=== PATIENT | female | born 1980 | race Caucasian/White ===

== ENCOUNTER 2017-07-11 01:15 | Emergency (ER) | payer MEDICAID ==
[~2017-07-11] VITALS: Ht 165.1 cm; Wt 99.5 kg
[~2017-07-11 01:15] MED LIST: ALBU18HF2 INH; BECL7.3A INH; CLON-527 PO; ONDA4TAB9 SL; TRAZ300T2 PO
[2017-07-11] MEDS ORDERED: HYDROcodone/acetaminophen 10/325mg tab PO ONE (01:50)
[2017-07-11] MEDS ORDERED: IBUP-1984 PO (02:27)
[2017-07-11] MEDS ORDERED: HYDR-3965 PO (02:27)
[2017-07-11 02:38] VITALS: BP 131/83
== END 2017-07-11 02:40 | disposition home or self-care (01) ==
LOC: ER 01:15
DX: M25.461 Effusion, right knee (principal); F12.10 Cannabis abuse, uncomplicated; J45.909 Unspecified asthma, uncomplicated; G89.29 Other chronic pain; M79.7 Fibromyalgia; Z88.0 Allergy status to penicillin; Z88.5 Allergy status to narcotic agent; Z88.8 Allergy status to other drugs, medicaments and biological substances; Z90.49 Acquired absence of other specified parts of digestive tract; Z56.0 Unemployment, unspecified; W01.0XXA Fall on same level from slipping, tripping and stumbling without subsequent striking against object, initial encounter; Y93.01 Activity, walking, marching and hiking; Y92.89 Other specified places as the place of occurrence of the external cause; Y99.8 Other external cause status
CPT/HCPCS: 29505; 73564; 99284

== ENCOUNTER 2017-07-31 07:31 | Emergency (ER) | payer MEDICAID ==
[~2017-07-31] VITALS: Ht 162.6 cm; Wt 99.5 kg
[~2017-07-31 07:31] MED LIST changes: +HYDR-3965 PO; +IBUP-1984 PO
[2017-07-31 07:35] VITALS: BP 152/84
[2017-07-31] MEDS ORDERED: PHEN100C4 PO (07:53)
[2017-07-31] MEDS: phenytoin sod ER 100mg capsule PO ONE (08:02)
[2017-07-31] MEDS: proCHLORperazine 10mg tablet PO ONE (08:02)
[2017-07-31] MEDS: HYDROcodone/acetaminophen 10/325mg tab PO ONE (08:03)
== END 2017-07-31 08:18 | disposition home or self-care (01) ==
LOC: ER 07:31
DX: G40.909 Epilepsy, unspecified, not intractable, without status epilepticus (principal); J45.909 Unspecified asthma, uncomplicated; G43.909 Migraine, unspecified, not intractable, without status migrainosus; G89.29 Other chronic pain; F12.10 Cannabis abuse, uncomplicated; Z90.49 Acquired absence of other specified parts of digestive tract; Z56.0 Unemployment, unspecified; Z88.0 Allergy status to penicillin; Z88.5 Allergy status to narcotic agent; Z88.8 Allergy status to other drugs, medicaments and biological substances; Z79.899 Other long term (current) drug therapy
CPT/HCPCS: 99284; Q0164

== ENCOUNTER 2017-08-06 17:55 | Emergency (ER) | payer MEDICAID ==
[~2017-08-06] VITALS: Ht 162.6 cm; Wt 100.0 kg
[~2017-08-06 17:55] MED LIST changes: +PHEN100C4 PO
[2017-08-06 18:03] VITALS: BP 127/80
[2017-08-06] MEDS: albuterol 2.5 MG/3 ML nebule NEB ONE (18:44)
[2017-08-06] MEDS ORDERED: ALBU8HFA PO (19:03)
== END 2017-08-06 19:00 | disposition home or self-care (01) ==
LOC: ER 17:57
DX: J45.909 Unspecified asthma, uncomplicated (principal); J06.9 Acute upper respiratory infection, unspecified; G43.909 Migraine, unspecified, not intractable, without status migrainosus; G89.29 Other chronic pain; M79.7 Fibromyalgia; F12.10 Cannabis abuse, uncomplicated; Z90.49 Acquired absence of other specified parts of digestive tract; Z98.51 Tubal ligation status; Z56.0 Unemployment, unspecified; Z88.5 Allergy status to narcotic agent; Z88.0 Allergy status to penicillin; Z79.899 Other long term (current) drug therapy
CPT/HCPCS: 71045; 94640; 94760; 99283

== ENCOUNTER 2017-10-19 12:14 | Emergency (ER) | payer MEDICAID ==
[~2017-10-19] VITALS: Ht 1588.3 cm; Wt 95.1 kg
[~2017-10-19 12:14] MED LIST changes: +ALBU8HFA PO; -HYDR-3965 PO; -IBUP-1984 PO
[2017-10-19 13:03] LABS: BASOPHILS % (AUTO) 0.4 % (0-1); EOSINOPHILS # (AUTO) 0.2 X10'3 (0-0.9); EOSINOPHILS % (AUTO) 1.9 % (0-6); HEMATOCRIT 46.8 % (35.0-45.0); HEMOGLOBIN 15.8 g/dl (12.0-16.0); LYMPHOCYTES # (AUTO) 2.3 X10'3 (1.1-4.8); LYMPHOCYTES % (AUTO) 23.7 % (21-51); MEAN CORPUSCULAR HEMOGLOBIN 30.7 PG (27.0-31.0); MEAN CORPUSCULAR HGB CONC 33.7 % (33.0-36.5); MEAN PLATELET VOLUME 8.2 FL (7.4-10.4); MONOCYTES # (AUTO) 0.6 X10'3 (0-0.9); MONOCYTES % (AUTO) 6.2 % (2-12); NEUTROPHILS # (AUTO) 6.6 X10'3 (1.8-7.7); NEUTROPHILS % (AUTO) 67.8 % (42-75); PLATELET COUNT 301 X10'3 (140-440); RED BLOOD COUNT 5.15 X10'6 (4.20-5.60); WHITE BLOOD COUNT 9.7 X10'3 (4.5-11.0)
[2017-10-19 13:21] LABS: ALANINE AMINOTRANSFERASE 13 U/L (12-78); ALBUMIN 3.7 G/DL (3.4-5.0); ALBUMIN/GLOBULIN RATIO 0.9 (1.1-1.5); ALKALINE PHOSPHATASE 112 IU/L (46-116); ANION GAP 9 (8-16); ASPARTATE AMINO TRANSFERASE 22 U/L (10-37); BILIRUBIN,TOTAL 0.4 MG/DL (0.1-1.0); BLOOD UREA NITROGEN 7 MG/DL (7-18); CALCIUM 8.9 MG/DL (8.5-10.1); CHLORIDE 106 MMOL/L (99-107); CREATININE 0.87 MG/DL (0.40-0.90); GLUCOSE 96 MG/DL (70-104); POTASSIUM 4.2 MMOL/L (3.5-5.1); SODIUM 139 MMOL/L (135-145); TOTAL PROTEIN 7.9 G/DL (6.4-8.2); eGFR 74 ML/MIN
[2017-10-19 13:30] LABS: ACETAMINOPHEN < 2.0 UG/ML (10-30); ETHANOL < 0.010 GM/DL (0.0-0.010)
[2017-10-19 13:40] LABS: URINE HCG NEGATIVE (NEG)
[2017-10-19 13:52] LABS: URINE AMPHETAMINE SCREEN NEGATIVE (Neg); URINE BARBITUATE SCREEN NEGATIVE (Neg); URINE BENZODIAZEPINES SCREEN NEGATIVE (Neg); URINE CANNABINOID SCREEN POSITIVE (Neg); URINE COCAINE SCREEN NEGATIVE (Neg); URINE METHADONE SCREEN NEGATIVE (Neg); URINE OPIATE SCREEN NEGATIVE (Neg); URINE PHENCYCLIDINE SCREEN NEGATIVE (Neg)
[2017-10-19 13:53] LABS: CLARITY,URINE SLIGHTLY CLOUDY (Clear); COLOR,URINE YELLOW (Yellow); GLUCOSE, URINE NEGATIVE (Neg); KETONES,URINE NEGATIVE (Neg); LEUKOCYTE ESTERASE ,URINE LARGE (Neg); NITRITES, URINE NEGATIVE (Neg); OCCULT BLOOD,URINE NEGATIVE (Neg); PROTEIN,URINE NEGATIVE (Neg); UROBILINOGEN,URINE 0.2 E.U/dL (0.2-1.0)
[2017-10-19 13:54] LABS: UA COLLECTION TYPE NON-SPECIFIED
[2017-10-19 14:00] LABS: MUCUS STRANDS FEW /LPF (Neg); SQUAMOUS EPITHELIAL CELL,UR MANY /LPF (FEW); WBC,URINE 0-4 /HPF (0-4)
[2017-10-19 14:01] LABS: BACTERIA,URINE 4+ /HPF (Neg); RBC,URINE 0-2 /HPF (0-2)
[2017-10-19] MEDS ORDERED: acetaminophen 325mg tablet PO ONE (14:20)
[2017-10-19] MEDS ORDERED: LORazepam 1 MG tablet PO ONE (14:20)
[2017-10-19] MEDS ORDERED: LORA2TAB96 PO (14:42)
[2017-10-19] MEDS ORDERED: TOPI100T18 PO (14:42)
[2017-10-19] MEDS ORDERED: OLAN5TAB3 PO (14:42)
[2017-10-19] MEDS ORDERED: ZALE10CA29 PO (14:42)
[2017-10-19] MEDS ORDERED: BREX2TAB PO (14:42)
[2017-10-19] MEDS: LORazepam 1 MG tablet PO PRN (20:17)
[2017-10-19] MEDS: OLANZapine 2.5MG tablet PO SCH (20:17)
[2017-10-19] MEDS: nitrofuran/nitrofuran macrocrysal 100 MG capsule PO SCH (20:18)
[2017-10-19] MEDS: zolpidem 5mg tablet PO SCH (20:18)
[2017-10-19] MEDS ORDERED: topiramate 100mg tablet PO ONE (21:00)
[2017-10-20] MEDS: nitrofuran/nitrofuran macrocrysal 100 MG capsule PO SCH ×2 (08:31→20:02)
[2017-10-20] MEDS: LORazepam 1 MG tablet PO PRN ×3 (08:34→20:02)
[2017-10-20] MEDS ORDERED: albuterol 2.5 MG/3 ML nebule NEB PRN (08:50)
[2017-10-20] MEDS ORDERED: non-formulary drug (Albuterol Sulfate (Ventolin Hfa) 2 PUFFS) INH PRN (08:50)
[2017-10-20] MEDS ORDERED: LORAZEPAM PO SCH (08:50)
[2017-10-20] MEDS: BUDESONIDE 0.25 MG/2 ML AMPUL.NEB IH SCH ×2 (09:00→20:59)
[2017-10-20] MEDS: topiramate 100mg tablet PO SCH ×2 (09:08→20:02)
[2017-10-20] MEDS ORDERED: phenazopyridine 100mg tablet PO PRN (10:20)
[2017-10-20] MEDS: OLANZapine 2.5MG tablet PO SCH (20:02)
[2017-10-20] MEDS: zolpidem 5mg tablet PO SCH (20:02)
[2017-10-20] MEDS ORDERED: non-formulary drug (Olanzapine (Zyprexa) 1 TAB) PO SCH (21:00)
[2017-10-20] MEDS ORDERED: ZALEPLON PO SCH (21:00)
[2017-10-21 05:30] VITALS: BP 139/82
[2017-10-21] MEDS: BUDESONIDE 0.25 MG/2 ML AMPUL.NEB IH SCH (07:35)
[2017-10-21] MEDS: nitrofuran/nitrofuran macrocrysal 100 MG capsule PO SCH (07:52)
[2017-10-21] MEDS: topiramate 100mg tablet PO SCH (07:52)
[2017-10-21] MEDS ORDERED: BREXPIPRAZOLE PO SCH (08:00)
[2017-10-21] MEDS: LORazepam 1 MG tablet PO PRN ×2 (08:24→13:56)
== END 2017-10-21 14:41 ==
LOC: ER 12:14
DX: F31.9 Bipolar disorder, unspecified (principal); F41.0 Panic disorder [episodic paroxysmal anxiety]; R45.851 Suicidal ideations; G43.909 Migraine, unspecified, not intractable, without status migrainosus; J45.909 Unspecified asthma, uncomplicated; G89.29 Other chronic pain; F12.90 Cannabis use, unspecified, uncomplicated; Z90.49 Acquired absence of other specified parts of digestive tract; Z56.0 Unemployment, unspecified; Z88.0 Allergy status to penicillin; Z88.5 Allergy status to narcotic agent; Z79.899 Other long term (current) drug therapy
CPT/HCPCS: 36415; 80053; 80305; 80320; 80329; 81001; 81025; 84443; 85025; 94760; 99285

== ENCOUNTER 2017-11-20 10:14 | Emergency (ER) | payer MEDICAID ==
[~2017-11-20] VITALS: Ht 162.6 cm; Wt 89.0 kg
[~2017-11-20 10:14] MED LIST changes: +BREX2TAB PO; -CLON-527 PO; +LORA2TAB96 PO; +OLAN5TAB3 PO; -ONDA4TAB9 SL; -PHEN100C4 PO; +TOPI100T18 PO; +ZALE10CA29 PO
[2017-11-20 11:56] LABS: URINE HCG NEGATIVE (NEG)
[2017-11-20 12:00] LABS: BASOPHILS % (AUTO) 0.3 % (0-1); EOSINOPHILS # (AUTO) 0.1 X10'3 (0-0.9); EOSINOPHILS % (AUTO) 0.8 % (0-6); HEMATOCRIT 46.8 % (35.0-45.0); HEMOGLOBIN 15.6 g/dl (12.0-16.0); LYMPHOCYTES # (AUTO) 2.1 X10'3 (1.1-4.8); LYMPHOCYTES % (AUTO) 16.9 % (21-51); MEAN CORPUSCULAR HEMOGLOBIN 30.5 PG (27.0-31.0); MEAN CORPUSCULAR HGB CONC 33.2 % (33.0-36.5); MEAN CORPUSCULAR VOLUME 91.6 FL (78-98); MEAN PLATELET VOLUME 8.6 FL (7.4-10.4); MONOCYTES # (AUTO) 0.8 X10'3 (0-0.9); MONOCYTES % (AUTO) 6.3 % (2-12); NEUTROPHILS # (AUTO) 9.3 X10'3 (1.8-7.7); NEUTROPHILS % (AUTO) 75.7 % (42-75); PLATELET COUNT 271 X10'3 (140-440); RED BLOOD COUNT 5.11 X10'6 (4.20-5.60); WHITE BLOOD COUNT 12.3 X10'3 (4.5-11.0)
[2017-11-20 12:03] LABS: ALANINE AMINOTRANSFERASE 18 U/L (12-78); ALBUMIN 3.5 G/DL (3.4-5.0); ALBUMIN/GLOBULIN RATIO 0.9 (1.1-1.5); ALKALINE PHOSPHATASE 110 IU/L (46-116); ANION GAP 11 (8-16); ASPARTATE AMINO TRANSFERASE 15 U/L (10-37); BILIRUBIN,TOTAL 0.4 MG/DL (0.1-1.0); BLOOD UREA NITROGEN 7 MG/DL (7-18); BUN/CREATININE RATIO 8.1 (6.6-38.0); CALCIUM 8.9 MG/DL (8.5-10.1); CHLORIDE 103 MMOL/L (99-107); CREATININE 0.86 MG/DL (0.40-0.90); GLUCOSE 117 MG/DL (70-104); POTASSIUM 3.3 MMOL/L (3.5-5.1); SODIUM 140 MMOL/L (135-145); TOTAL CARBON DIOXIDE 26.4 MMOL/L (24-32); TOTAL PROTEIN 7.5 G/DL (6.4-8.2); eGFR 75 ML/MIN
[2017-11-20 12:06] LABS: URINE AMPHETAMINE SCREEN NEGATIVE (Neg); URINE BARBITUATE SCREEN NEGATIVE (Neg); URINE BENZODIAZEPINES SCREEN NEGATIVE (Neg); URINE CANNABINOID SCREEN POSITIVE (Neg); URINE COCAINE SCREEN NEGATIVE (Neg); URINE METHADONE SCREEN NEGATIVE (Neg); URINE OPIATE SCREEN NEGATIVE (Neg); URINE PHENCYCLIDINE SCREEN NEGATIVE (Neg)
[2017-11-20 12:13] LABS: ETHANOL < 0.010 GM/DL (0.0-0.010)
[2017-11-20 12:26] LABS: ACETAMINOPHEN < 2.0 UG/ML (10-30)
[2017-11-20] MEDS ORDERED: doxycycline hyclate 100mg tablet.DR PO ONE (13:09)
[2017-11-20 13:14] LABS: CLARITY,URINE SLIGHTLY CLOUDY (Clear); COLOR,URINE YELLOW (Yellow); GLUCOSE, URINE NEGATIVE (Neg); KETONES,URINE 15 mg/dl (Neg); LEUKOCYTE ESTERASE ,URINE SMALL (Neg); NITRITES, URINE NEGATIVE (Neg); OCCULT BLOOD,URINE TRACE-INTACT (Neg); PH,URINE 6.5 (4.8-8.0); PROTEIN,URINE 30 mg/dl (Neg)
[2017-11-20] MEDS ORDERED: DOXYCYCLINE 100MG CAPSULE PO STA (13:15)
[2017-11-20 13:16] LABS: UA COLLECTION TYPE CLN CATCH MIDSTREAM
[2017-11-20 13:20] LABS: RBC,URINE 0-2 /HPF (0-2)
[2017-11-20 13:21] LABS: BACTERIA,URINE FEW /HPF (Neg); CAL OXALATE CRYSTALS 1+ /HPF (NEGATIVE); MUCUS STRANDS MODERATE /LPF (Neg); SQUAMOUS EPITHELIAL CELL,UR MODERATE /LPF (FEW)
[2017-11-20] MEDS ORDERED: BECL7.3A7 INH (13:37)
[2017-11-20] MEDS ORDERED: GABA-532 PO (13:39)
[2017-11-20] MEDS ORDERED: LORazepam 1 MG tablet PO PRN (14:05)
[2017-11-20] MEDS ORDERED: acetaminophen 325mg tablet PO PRN (14:05)
[2017-11-20] MEDS ORDERED: zolpidem 5mg tablet PO PRN (14:10)
[2017-11-20] MEDS ORDERED: albuterol 2.5 MG/3 ML nebule NEB PRN (14:10)
[2017-11-20 16:45] VITALS: BP 114/76
[2017-11-20] MEDS ORDERED: budesonide 0.5mg/2ml UD nebule IH SCH (20:00)
[2017-11-20] MEDS ORDERED: gabapentin 300mg capsule PO SCH (21:00)
== END 2017-11-20 18:20 ==
LOC: ER 10:14
DX: B95.8 Unspecified staphylococcus as the cause of diseases classified elsewhere (principal); R45.851 Suicidal ideations; F12.90 Cannabis use, unspecified, uncomplicated; G89.29 Other chronic pain; G43.909 Migraine, unspecified, not intractable, without status migrainosus; F41.9 Anxiety disorder, unspecified; F32.9 Major depressive disorder, single episode, unspecified; Z90.49 Acquired absence of other specified parts of digestive tract; Z88.0 Allergy status to penicillin; Z88.5 Allergy status to narcotic agent; Z88.8 Allergy status to other drugs, medicaments and biological substances; Z79.899 Other long term (current) drug therapy; Z56.0 Unemployment, unspecified
CPT/HCPCS: 36415; 80053; 80305; 80320; 80329; 81001; 81025; 84443; 85025; 99285

== ENCOUNTER 2019-12-16 18:15 | Emergency (ER) | payer MEDICAID ==
[~2019-12-16] VITALS: Ht 163.8 cm; Wt 90.0 kg
[~2019-12-16 18:15] MED LIST changes: -ALBU8HFA PO; -BECL7.3A INH; +BECL7.3A7 INH; -BREX2TAB PO; +GABA-532 PO; -OLAN5TAB3 PO; -TOPI100T18 PO; -TRAZ300T2 PO
[2019-12-16] MEDS ORDERED: diphenhydrAMINE 50 mg/ml inj IM ONE (18:40)
[2019-12-16] MEDS ORDERED: LORazepam 2 mg/ml vial IM ONE (18:40)
[2019-12-16] MEDS ORDERED: haloperidol lactate 5mg/ml inj IM ONE (18:40)
[2019-12-16 20:21] LABS: BASOPHILS # (AUTO) 0.1 X10'3 (0-0.2); BASOPHILS % (AUTO) 0.5 % (0-1); EOSINOPHILS # (AUTO) 0.1 X10'3 (0-0.9); EOSINOPHILS % (AUTO) 0.6 % (0-6); HEMATOCRIT 40.6 % (35.0-45.0); HEMOGLOBIN 13.7 g/dl (12.0-16.0); LYMPHOCYTES # (AUTO) 1.7 X10'3 (1.1-4.8); LYMPHOCYTES % (AUTO) 12.2 % (21-51); MEAN CORPUSCULAR HEMOGLOBIN 31.3 PG (27.0-31.0); MEAN CORPUSCULAR HGB CONC 33.7 g/dL (33.0-36.5); MEAN CORPUSCULAR VOLUME 92.8 FL (78-98); MEAN PLATELET VOLUME 8.6 FL (7.4-10.4); MONOCYTES # (AUTO) 1.2 X10'3 (0-0.9); MONOCYTES % (AUTO) 8.6 % (2-12); NEUTROPHILS # (AUTO) 11.2 X10'3 (1.8-7.7); NEUTROPHILS % (AUTO) 78.1 % (42-75); PLATELET COUNT 234 X10'3 (140-440); RED BLOOD COUNT 4.37 X10'6 (4.20-5.60); RED CELL DISTRIBUTION WIDTH 13.2 % (11.5-14.5); WHITE BLOOD COUNT 14.3 X10'3 (4.5-11.0)
[2019-12-16 20:46] LABS: ALANINE AMINOTRANSFERASE 54 U/L (12-78); ALBUMIN 3.9 G/DL (3.4-5.0); ALBUMIN/GLOBULIN RATIO 1.3 (1.1-1.5); ALKALINE PHOSPHATASE 87 IU/L (46-116); ANION GAP 13 (8-16); ASPARTATE AMINO TRANSFERASE 85 U/L (10-37); BILIRUBIN,TOTAL 1.3 MG/DL (0.1-1.0); BLOOD UREA NITROGEN 24 MG/DL (7-18); BUN/CREATININE RATIO 28.6 (6.6-38.0); CALCIUM 9.1 MG/DL (8.5-10.1); CHLORIDE 103 MMOL/L (99-107); CREATININE 0.84 MG/DL (0.40-0.90); GLUCOSE 103 MG/DL (70-104); SODIUM 137 MMOL/L (135-145); TOTAL CARBON DIOXIDE 21.2 MMOL/L (24-32); TOTAL PROTEIN 6.9 G/DL (6.4-8.2); eGFR 76 ML/MIN
[2019-12-16 20:52] LABS: POTASSIUM 2.5 MMOL/L (3.5-5.1)
[2019-12-16 20:56] LABS: URINE HCG NEGATIVE (NEG)
[2019-12-16 20:58] LABS: CLARITY,URINE CLEAR (Clear); COLOR,URINE YELLOW (Yellow); GLUCOSE, URINE NEGATIVE (Neg); KETONES,URINE 15 mg/dl (Neg); LEUKOCYTE ESTERASE ,URINE NEGATIVE (Neg); NITRITES, URINE NEGATIVE (Neg); OCCULT BLOOD,URINE NEGATIVE (Neg); PROTEIN,URINE TRACE mg/dl (Neg); UROBILINOGEN,URINE 0.2 E.U/dL (0.2-1.0)
[2019-12-16 20:59] LABS: UA COLLECTION TYPE STRAIGHT CATH
[2019-12-16] MEDS ORDERED: potassium chloride 10mEq ER tablet PO STA (21:03)
[2019-12-16 21:10] LABS: BACTERIA,URINE FEW /HPF (Neg); MUCUS STRANDS FEW /LPF (Neg); RBC,URINE 0-2 /HPF (0-2); SQUAMOUS EPITHELIAL CELL,UR MODERATE /LPF (FEW); URINE AMPHETAMINE SCREEN POSITIVE (Neg); URINE BARBITUATE SCREEN NEGATIVE (Neg); URINE BENZODIAZEPINES SCREEN NEGATIVE (Neg); URINE CANNABINOID SCREEN POSITIVE (Neg); URINE COCAINE SCREEN NEGATIVE (Neg); URINE METHADONE SCREEN NEGATIVE (Neg); URINE OPIATE SCREEN NEGATIVE (Neg); URINE PHENCYCLIDINE SCREEN NEGATIVE (Neg)
--- NOTE | 2019-12-16 21:14 | NUR ---
when I performed the strait cath for urine sample, a tampon string with brown dicharge was protruding from pt's vaginal canal. There was a metalic smell noted in the room. The tampon was removed. It appeared to have old blood on it. Angelika FAGAN is aware
[2019-12-16] MEDS ORDERED: normal saline 1000ML IV soln IVB ONE (21:35)
[2019-12-16] MEDS: potassium Cl 10 mEq/100mL bag IV SCH ×2 (21:42→22:42)
--- NOTE | 2019-12-16 21:44 | NUR ---
Pt unable to swallow PO K+ at this time. Provider aware IV started K+ hung
--- NOTE | 2019-12-17 00:30 | NUR ---
Pt is being held on a 179 for gravely disabled. Pt is altered at this time. When she is awake she can't stop jerking body and slithering around on the bed.
--- NOTE | 2019-12-17 10:23 | NUR ---
PT. HAS BEEN RESTING Q15 CHECKS HAVE BEEN PERFORMED PT. HAS BEEN RESTING VITAL SIGNS ARE STABLE
--- NOTE | 2019-12-17 12:59 | NUR ---
PT RESTING, SHE WAS PROVIDED A BLANKET AND SOME FOOD
--- NOTE | 2019-12-17 13:18 | NUR ---
PT. BROUGHT BACK TO OVERFLOW, IN BED 23
[2019-12-17 15:37] VITALS: BP 95/60
--- NOTE | 2019-12-17 15:41 | NUR ---
DISCHARGE NOTE: Patient discharged at 1535 from ED overflow. Patient was escorted out to lobby to wait for ride from her friend Emilio. Patient is alert and oriented. Patient left with personal belongings, resources and follow up appointment.
== END 2019-12-17 15:42 | disposition home or self-care (01) ==
LOC: ER 18:16
DX: F15.10 Other stimulant abuse, uncomplicated (principal); F23 Brief psychotic disorder; E87.6 Hypokalemia; G43.909 Migraine, unspecified, not intractable, without status migrainosus; J45.909 Unspecified asthma, uncomplicated; G89.29 Other chronic pain; F41.9 Anxiety disorder, unspecified; F31.9 Bipolar disorder, unspecified; F12.90 Cannabis use, unspecified, uncomplicated; Z86.69 Personal history of other diseases of the nervous system and sense organs; Z90.49 Acquired absence of other specified parts of digestive tract; Z98.51 Tubal ligation status; Z56.0 Unemployment, unspecified; Z88.8 Allergy status to other drugs, medicaments and biological substances; Z88.5 Allergy status to narcotic agent; Z88.0 Allergy status to penicillin; Z79.899 Other long term (current) drug therapy
CPT/HCPCS: 36415; 80053; 80305; 81001; 81025; 82553; 85025; 87088; 96365; 96366; 96372; 99285; J1630; J2060; J3480; J7030; 96375

== ENCOUNTER 2020-03-01 20:09 | Emergency (ER) | payer MEDICAID ==
[~2020-03-01] VITALS: Ht 162.6 cm; Wt 72.7 kg
[2020-03-01 20:27] LABS: BASOPHILS # (AUTO) 0.1 X10'3 (0-0.2); EOSINOPHILS # (AUTO) 0.2 X10'3 (0-0.9); EOSINOPHILS % (AUTO) 2.7 % (0-6); HEMATOCRIT 40.3 % (35.0-45.0); HEMOGLOBIN 13.4 g/dl (12.0-16.0); LYMPHOCYTES # (AUTO) 3.6 X10'3 (1.1-4.8); LYMPHOCYTES % (AUTO) 41.3 % (21-51); MEAN CORPUSCULAR HEMOGLOBIN 30.3 PG (27.0-31.0); MEAN CORPUSCULAR HGB CONC 33.2 g/dL (33.0-36.5); MEAN CORPUSCULAR VOLUME 91.2 FL (78-98); MEAN PLATELET VOLUME 7.5 FL (7.4-10.4); MONOCYTES # (AUTO) 0.7 X10'3 (0-0.9); MONOCYTES % (AUTO) 8.1 % (2-12); NEUTROPHILS # (AUTO) 4.1 X10'3 (1.8-7.7); NEUTROPHILS % (AUTO) 46.9 % (42-75); PLATELET COUNT 399 X10'3 (140-440); RED BLOOD COUNT 4.42 X10'6 (4.20-5.60); RED CELL DISTRIBUTION WIDTH 14.4 % (11.5-14.5); WHITE BLOOD COUNT 8.8 X10'3 (4.5-11.0)
[2020-03-01 20:46] LABS: ALANINE AMINOTRANSFERASE 20 U/L (12-78); ALBUMIN 3.8 G/DL (3.4-5.0); ALKALINE PHOSPHATASE 79 IU/L (46-116); ANION GAP 8 (8-16); BILIRUBIN,TOTAL 0.4 MG/DL (0.1-1.0); BLOOD UREA NITROGEN 12 MG/DL (7-18); BUN/CREATININE RATIO 14.3 (6.6-38.0); CALCIUM 8.9 MG/DL (8.5-10.1); CHLORIDE 106 MMOL/L (99-107); CREATININE 0.84 MG/DL (0.40-0.90); GLUCOSE 77 MG/DL (70-104); SODIUM 141 MMOL/L (135-145); TOTAL CARBON DIOXIDE 27.4 MMOL/L (24-32); TOTAL PROTEIN 7.8 G/DL (6.4-8.2); eGFR 76 ML/MIN
[2020-03-01] MEDS ORDERED: ketorolac tromethamine 15mg/ml inj. IV ONE (20:50)
[2020-03-01] MEDS ORDERED: ondansetron/PF 4mg/2ml inj IV ONE (20:50)
[2020-03-01 20:54] LABS: TROPONIN I < 0.04 NG/ML (0.0-0.05)
[2020-03-01 20:56] LABS: ASPARTATE AMINO TRANSFERASE 24 U/L (10-37); POTASSIUM 4.1 MMOL/L (3.5-5.1)
[2020-03-01 21:06] LABS: CLARITY,URINE CLEAR (Clear); COLOR,URINE STRAW (Yellow); GLUCOSE, URINE NEGATIVE (Neg); KETONES,URINE NEGATIVE (Neg); LEUKOCYTE ESTERASE ,URINE MODERATE (Neg); NITRITES, URINE NEGATIVE (Neg); OCCULT BLOOD,URINE TRACE-INTACT (Neg); PROTEIN,URINE NEGATIVE (Neg); UROBILINOGEN,URINE 0.2 E.U/dL (0.2-1.0)
[2020-03-01 21:07] LABS: UA COLLECTION TYPE NON-SPECIFIED
[2020-03-01 21:08] LABS: URINE HCG NEGATIVE (NEG)
[2020-03-01 21:12] LABS: BACTERIA,URINE 1+ /HPF (Neg); RBC,URINE 0-2 /HPF (0-2); SQUAMOUS EPITHELIAL CELL,UR MODERATE /LPF (FEW); URINE AMPHETAMINE SCREEN NEGATIVE (Neg); URINE BARBITUATE SCREEN NEGATIVE (Neg); URINE BENZODIAZEPINES SCREEN NEGATIVE (Neg); URINE CANNABINOID SCREEN NEGATIVE (Neg); URINE COCAINE SCREEN NEGATIVE (Neg); URINE METHADONE SCREEN NEGATIVE (Neg); URINE OPIATE SCREEN NEGATIVE (Neg); URINE PHENCYCLIDINE SCREEN NEGATIVE (Neg)
[2020-03-01] MEDS ORDERED: levetiracetam 250mg tablet PO ONE (21:35)
[2020-03-01 21:40] VITALS: BP 124/63
[2020-03-01] MEDS ORDERED: CefTRIAXone 1000mg IM Kit (w/lidocaine diluent) IM ONE (21:40)
[2020-03-01] MEDS ORDERED: NITR100C6 PO (21:53)
--- NOTE | 2020-03-01 21:56 | NUR ---
CALLED [facility]. STAFF WILL BE COMING TO PICK PT UP
== END 2020-03-01 22:26 | disposition home or self-care (01) ==
LOC: ER 20:09 → MERGE 20:10 → ER 20:10
DX: N39.0 Urinary tract infection, site not specified (principal); R11.0 Nausea; R51.9 Headache, unspecified; F17.200 Nicotine dependence, unspecified, uncomplicated; F15.90 Other stimulant use, unspecified, uncomplicated; Z86.69 Personal history of other diseases of the nervous system and sense organs; Z88.5 Allergy status to narcotic agent; Z88.8 Allergy status to other drugs, medicaments and biological substances; Z79.899 Other long term (current) drug therapy
CPT/HCPCS: 36415; 71045; 80053; 80305; 81001; 81025; 83880; 84484; 85025; 87088; 93005; 96372; 96374; 96375; 99285; J0696; J1885; J2405

== ENCOUNTER 2020-11-08 14:57 | Emergency (ER) | payer MEDICAID ==
[~2020-11-08] VITALS: Ht 162.6 cm; Wt 67.0 kg
[~2020-11-08 14:57] MED LIST changes: +NITR100C6 PO
[2020-11-08 16:58] LABS: BASOPHILS % (AUTO) 0.5 % (0-1); EOSINOPHILS # (AUTO) 0.2 X10'3 (0-0.9); EOSINOPHILS % (AUTO) 3.4 % (0-6); HEMATOCRIT 40.9 % (35.0-45.0); HEMOGLOBIN 13.6 g/dl (12.0-16.0); LYMPHOCYTES # (AUTO) 2.5 X10'3 (1.1-4.8); LYMPHOCYTES % (AUTO) 35.8 % (21-51); MEAN CORPUSCULAR HGB CONC 33.3 g/dL (33.0-36.5); MEAN PLATELET VOLUME 7.9 FL (7.4-10.4); MONOCYTES # (AUTO) 0.6 X10'3 (0-0.9); MONOCYTES % (AUTO) 8.3 % (2-12); NEUTROPHILS # (AUTO) 3.7 X10'3 (1.8-7.7); PLATELET COUNT 321 X10'3 (140-440)
[2020-11-08 17:07] LABS: ALANINE AMINOTRANSFERASE 21 U/L (12-78); ALBUMIN 3.6 G/DL (3.4-5.0); ALBUMIN/GLOBULIN RATIO 1.1 (1.1-1.5); ALKALINE PHOSPHATASE 77 IU/L (46-116); ANION GAP 7 (8-16); ASPARTATE AMINO TRANSFERASE 12 U/L (10-37); BILIRUBIN,TOTAL 0.3 MG/DL (0.1-1.0); BLOOD UREA NITROGEN 12 MG/DL (7-18); BUN/CREATININE RATIO 17.1 (6.6-38.0); CALCIUM 8.5 MG/DL (8.5-10.1); CHLORIDE 107 MMOL/L (99-107); ETHANOL < 0.010 GM/DL (0.0-0.010); GLUCOSE 106 MG/DL (70-104); POTASSIUM 3.9 MMOL/L (3.5-5.1); SODIUM 142 MMOL/L (135-145); TOTAL CARBON DIOXIDE 27.8 MMOL/L (24-32); eGFR > 90 ML/MIN
[2020-11-08] MEDS ORDERED: LEVE10002 PO (19:19)
--- NOTE | 2020-11-08 19:22 | NUR ---
The patient moved to bed 24 in the overflow. She was pleasant and cooperative with the intake process. She reports that that she recently moved to [facility] from [facility] so that she can get into a drug and ETOH treatment program. She has been staying at the [facility] and reports she has been off meth for 8 days. She stated that she has been feeling depressed, hopeless and having suicidal thoughts and stated that she is having cravings and feels like she might relapse. She stated that she feels suicidal with a plan to overdose on OTC medications. She was in [facility] one month ago but did not follow through with medications and started using meth again. She reports a history of seizures and stated she has been off her keppra and all other medications
[2020-11-08 19:29] LABS: URINE HCG NEGATIVE (NEG)
[2020-11-08 19:40] LABS: URINE AMPHETAMINE SCREEN NEGATIVE (Neg); URINE BARBITUATE SCREEN NEGATIVE (Neg); URINE BENZODIAZEPINES SCREEN NEGATIVE (Neg); URINE CANNABINOID SCREEN POSITIVE (Neg); URINE COCAINE SCREEN NEGATIVE (Neg); URINE METHADONE SCREEN NEGATIVE (Neg); URINE OPIATE SCREEN NEGATIVE (Neg); URINE PHENCYCLIDINE SCREEN NEGATIVE (Neg)
[2020-11-08] MEDS ORDERED: albuterol 2.5 MG/3 ML nebule NEB PRN (20:00)
[2020-11-08] MEDS: levetiracetam 250mg tablet PO SCH (20:31)
--- NOTE | 2020-11-08 21:30 | NUR ---
Packet to [facility]
--- NOTE | 2020-11-08 21:43 | NUR ---
The patient appears to be sleeping
--- NOTE | 2020-11-09 00:07 | NUR ---
The patient appears to be sleeping
--- NOTE | 2020-11-09 01:58 | NUR ---
The patient appears to be sleeping
--- NOTE | 2020-11-09 03:49 | NUR ---
The patient appears to be sleeping
--- NOTE | 2020-11-09 05:19 | NUR ---
The patient appears to be sleeping
[2020-11-09] MEDS: levetiracetam 250mg tablet PO SCH ×2 (08:39→19:15)
--- NOTE | 2020-11-09 17:49 | NUR ---
Patient c/o pain in her ankle and a headache. Spoke with Dr. Cai who stated to place a verbal order for tylenol 650 mg PO once now for pain. Placed order per MD request, Phil SOTOMAYOR aware.
[2020-11-09] MEDS ORDERED: acetaminophen 325mg tablet PO ONE (17:50)
[2020-11-09] MEDS ORDERED: OLANZapine 2.5MG tablet PO ONE (19:05)
[2020-11-09] MEDS ORDERED: olanzapine 10mg tablet PO ONE (19:05)
--- NOTE | 2020-11-09 19:05 | NUR ---
One to one with the patient to assess depressive symptoms and self harm risk. The patient stated that she continues t feel depressed with suicidal thoughts. She stated that she is also having auditory hallucinations that are derrogatorry in nature. She stated that at [facility] she had been on zyprexa and that had worked well for her. Psychiatric PA, Neel Pace, notifed and orders received. Josef rap from ankle was removed offered patient ice or pillow to elevate but she declined. She did state that the tylenol was some helpful
--- NOTE | 2020-11-09 21:01 | NUR ---
The patient has been accepted at [facility]
[2020-11-09 21:20] VITALS: BP 103/77
== END 2020-11-09 21:24 ==
LOC: ER 14:57
DX: S93.409A Sprain of unspecified ligament of unspecified ankle, initial encounter (principal); Z20.822 Contact with and (suspected) exposure to COVID-19; R45.851 Suicidal ideations; F32.9 Major depressive disorder, single episode, unspecified; F15.10 Other stimulant abuse, uncomplicated; F12.90 Cannabis use, unspecified, uncomplicated; G43.909 Migraine, unspecified, not intractable, without status migrainosus; J45.909 Unspecified asthma, uncomplicated; M79.7 Fibromyalgia; Z56.0 Unemployment, unspecified; Z90.49 Acquired absence of other specified parts of digestive tract; Z98.51 Tubal ligation status; X50.1XXA Overexertion from prolonged static or awkward postures, initial encounter; Y93.01 Activity, walking, marching and hiking; Y92.89 Other specified places as the place of occurrence of the external cause; Y99.8 Other external cause status
CPT/HCPCS: 36415; 73610; 80053; 80305; 80320; 81025; 85025; 87426; 99285

== ENCOUNTER 2020-12-05 09:37 | Emergency (ER) | payer MEDICAID ==
[~2020-12-05] VITALS: Ht 160 cm; Wt 72.0 kg
[~2020-12-05 09:37] MED LIST changes: -BECL7.3A7 INH; +DULO60CA65 PO; -GABA-532 PO; +LEVE10006 PO; -LORA2TAB96 PO; +NICO10CA INH; -NITR100C6 PO; +OLAN10TA21 PO; +TRAZ-251 PO; -ZALE10CA29 PO
[2020-12-05 10:10] LABS: BASOPHILS % (AUTO) 0.5 % (0-1); EOSINOPHILS # (AUTO) 0.1 X10'3 (0-0.9); EOSINOPHILS % (AUTO) 1.6 % (0-6); HEMATOCRIT 41.3 % (35.0-45.0); HEMOGLOBIN 13.9 g/dl (12.0-16.0); LYMPHOCYTES % (AUTO) 30.9 % (21-51); MEAN CORPUSCULAR HEMOGLOBIN 31.6 PG (27.0-31.0); MEAN CORPUSCULAR HGB CONC 33.7 g/dL (33.0-36.5); MEAN CORPUSCULAR VOLUME 93.7 FL (78-98); MEAN PLATELET VOLUME 8.5 FL (7.4-10.4); MONOCYTES # (AUTO) 0.7 X10'3 (0-0.9); MONOCYTES % (AUTO) 11.2 % (2-12); NEUTROPHILS # (AUTO) 3.6 X10'3 (1.8-7.7); NEUTROPHILS % (AUTO) 55.8 % (42-75); PLATELET COUNT 297 X10'3 (140-440); RED CELL DISTRIBUTION WIDTH 13.7 % (11.5-14.5); WHITE BLOOD COUNT 6.5 X10'3 (4.5-11.0)
[2020-12-05 10:35] LABS: ALANINE AMINOTRANSFERASE 37 U/L (12-78); ALBUMIN 4.1 G/DL (3.4-5.0); ALBUMIN/GLOBULIN RATIO 1.3 (1.1-1.5); ALKALINE PHOSPHATASE 72 IU/L (46-116); ANION GAP 12 (8-16); ASPARTATE AMINO TRANSFERASE 34 U/L (10-37); BLOOD UREA NITROGEN 11 MG/DL (7-18); BUN/CREATININE RATIO 16.9 (6.6-38.0); CALCIUM 8.5 MG/DL (8.5-10.1); CHLORIDE 103 MMOL/L (99-107); CREATININE 0.65 MG/DL (0.40-0.90); GLUCOSE 101 MG/DL (70-104); SODIUM 139 MMOL/L (135-145); TOTAL CARBON DIOXIDE 24.1 MMOL/L (24-32); TOTAL PROTEIN 7.3 G/DL (6.4-8.2); eGFR > 90 ML/MIN
[2020-12-05 10:37] LABS: BILIRUBIN,TOTAL 1.2 MG/DL (0.1-1.0); ETHANOL < 0.010 GM/DL (0.0-0.010); POTASSIUM 2.8 MMOL/L (3.5-5.1)
[2020-12-05] MEDS ORDERED: potassium Cl 20 mEq SR tablet PO ONE (10:45)
[2020-12-05] MEDS: magnesium 2GM in 50ml NS 50 ML IV SCH ×2 (10:45→11:45)
[2020-12-05] MEDS ORDERED: normal saline 1000ML IV soln IVB ONE (10:45)
[2020-12-05] MEDS: potassium Cl 10 mEq/100mL bag IV SCH ×2 (10:45→11:45)
--- NOTE | 2020-12-05 11:14 | NUR ---
Pt was BIB EMS to ED-0F at 1020. Pt was transported via gurney to bed #23. Pt is extremely agitated and restless. Pt took herself to [facility] stating she was feeling hopeless and hasn't eaten in days and doesn't know how to find food. Pt is homeless and reports she has been using methamphetamine. Pt has been cooperative with admit process. Pt was changed into green scrubs, personal belongings were inventoried. Contraband found and given to security to include meth pipe and torch. Pt is lying in bed tossing and turning, scratching. Pt states "I itch, I haven't showered." Pt was negative for lice. Pt was given fluids. Waiting orders. Will continue to monitor.
[2020-12-05] MEDS ORDERED: normal saline 1000ml 1,000 ML IV ONE (13:00)
--- NOTE | 2020-12-05 13:27 | NUR ---
Pt is awake tossing and turning. Admitting was just at bedside getting signatures. Pt has IV K+ running, tolerating well.
--- NOTE | 2020-12-05 14:05 | NUR ---
Pt appears to be sleeping, but is talking to self and rolling around the bed. IV is intact. Pt tolerating well.
--- NOTE | 2020-12-05 16:22 | NUR ---
Pt is resting comfortably IV Mg is running IV. Pt appears to be tolerating well. We are still waiting for pt to leave a UA.
--- NOTE | 2020-12-05 17:11 | NUR ---
Non administered second bag of Mg. eMAR indicated q1hr x 2 bags (2GMS total). Order read A TOTAL OF 2 GMS. RN spoke with MANDI Serrano as there was no Mg level drawn (Only critical K+ of 2.8 - IV K+ was administered.) MANDI and RN spoke with Dr. Galaviz and promise to adminster 2GMS Mg prophylactically. ADMINISTERD 1 BAG 2GMS MG IV.
[2020-12-05 17:33] LABS: CLARITY,URINE CLOUDY (Clear); COLOR,URINE YELLOW (Yellow); GLUCOSE, URINE NEGATIVE (Neg); KETONES,URINE TRACE mg/dl (Neg); LEUKOCYTE ESTERASE ,URINE NEGATIVE (Neg); NITRITES, URINE NEGATIVE (Neg); OCCULT BLOOD,URINE LARGE (Neg); PROTEIN,URINE TRACE mg/dl (Neg); UROBILINOGEN,URINE 0.2 E.U/dL (0.2-1.0)
[2020-12-05 17:34] LABS: URINE HCG NEGATIVE (NEG)
[2020-12-05 17:46] LABS: URINE AMPHETAMINE SCREEN POSITIVE (Neg); URINE BARBITUATE SCREEN NEGATIVE (Neg); URINE BENZODIAZEPINES SCREEN NEGATIVE (Neg); URINE CANNABINOID SCREEN NEGATIVE (Neg); URINE COCAINE SCREEN NEGATIVE (Neg); URINE METHADONE SCREEN NEGATIVE (Neg); URINE OPIATE SCREEN NEGATIVE (Neg); URINE PHENCYCLIDINE SCREEN NEGATIVE (Neg)
[2020-12-05 17:47] LABS: UA COLLECTION TYPE CLN CATCH MIDSTREAM
[2020-12-05 17:59] LABS: SQUAMOUS EPITHELIAL CELL,UR MANY /LPF (FEW)
[2020-12-05 18:00] LABS: BACTERIA,URINE FEW /HPF (Neg); MUCUS STRANDS FEW /LPF (Neg); RBC,URINE 0-2 /HPF (0-2)
[2020-12-05 18:01] LABS: WBC,URINE 0-4 /HPF (0-4)
[2020-12-05] MEDS ORDERED: OLAN-1 PO (19:16)
[2020-12-05] MEDS ORDERED: TRAZ-251 PO (19:16)
[2020-12-05] MEDS ORDERED: ALBU18HF2 INH (19:16)
[2020-12-05] MEDS ORDERED: DULO60CA65 PO (19:16)
[2020-12-05] MEDS ORDERED: LEVE10006 PO (19:16)
--- NOTE | 2020-12-05 19:27 | NUR ---
The patient is resting on her bed and appears to be groggy. She stated that she has not been taking her medications after discharge from [facility] earlier in the month. Medication rec completed and Dr. Gastelum made aware that the patient had not been medication compliant but that she had been stabilized on same medications at [facility].
[2020-12-05] MEDS ORDERED: traZODone 50mg tablet PO PRN (19:30)
[2020-12-05] MEDS ORDERED: albuterol 2.5 MG/3 ML nebule NEB PRN (19:30)
--- NOTE | 2020-12-05 19:36 | NUR ---
Packet sent to [facility]
[2020-12-05 19:41] LABS: MAGNESIUM 2.3 MG/DL (1.5-2.4); POTASSIUM 3.8 MMOL/L (3.5-5.1)
[2020-12-05] MEDS ORDERED: levetiracetam 250mg tablet PO SCH (20:00)
[2020-12-05] MEDS ORDERED: OLANZapine 5mg rapidly disint. tablet PO SCH (21:00)
--- NOTE | 2020-12-05 21:17 | NUR ---
updated labs sent to [facility] with K of 3.8 and mag of 2.3. The patient appears to be sleeping at this time.
--- NOTE | 2020-12-05 22:12 | NUR ---
The patient has been accepted at [facility] pending negative covid and covid swab sent
--- NOTE | 2020-12-05 22:28 | NUR ---
Negative covid results faxed to [facility]
--- NOTE | 2020-12-05 23:17 | NUR ---
The patient appears to be sleeping
[2020-12-05 23:48] VITALS: BP 119/70
[2020-12-06] MEDS ORDERED: duloxetine 30mg CAPSULE.DR PO SCH (08:00)
== END 2020-12-05 23:50 ==
LOC: ER 09:37
DX: F15.10 Other stimulant abuse, uncomplicated (principal); Z20.822 Contact with and (suspected) exposure to COVID-19; E87.6 Hypokalemia; F32.9 Major depressive disorder, single episode, unspecified; R94.6 Abnormal results of thyroid function studies; G43.909 Migraine, unspecified, not intractable, without status migrainosus; G40.909 Epilepsy, unspecified, not intractable, without status epilepticus; J45.909 Unspecified asthma, uncomplicated; F12.90 Cannabis use, unspecified, uncomplicated; G89.29 Other chronic pain; M79.7 Fibromyalgia; Z90.49 Acquired absence of other specified parts of digestive tract; Z72.0 Tobacco use; Z98.51 Tubal ligation status; Z56.0 Unemployment, unspecified; Z88.0 Allergy status to penicillin; Z91.018 Allergy to other foods; Z91.048 Other nonmedicinal substance allergy status; Z88.6 Allergy status to analgesic agent; Z88.8 Allergy status to other drugs, medicaments and biological substances; Z79.899 Other long term (current) drug therapy; Z91.14 Patient's other noncompliance with medication regimen
CPT/HCPCS: 36415; 80053; 80305; 80320; 81001; 81025; 83735; 84132; 84439; 84443; 85025; 87635; 96365; 96366; 99285; C9803; J3475; J3480; J7030

== ENCOUNTER 2020-12-05 21:45 | Inpatient (IN) | payer MEDICAID ==
[~2020-12-05] VITALS: Ht 160 cm; Wt 71.4 kg
[~2020-12-05 21:45] MED LIST changes: +OLAN-1 PO
[2020-12-05] MEDS ORDERED: mag hydrox/Alum hydrox/simeth 30ml oral suspension PO PRN (23:15)
[2020-12-05] MEDS ORDERED: loperamide 2mg capsule PO PRN (23:15)
[2020-12-05] MEDS ORDERED: magnesium hydroxide 30ml (MOM) UD suspension PO PRN (23:15)
[2020-12-05] MEDS ORDERED: acetaminophen 325mg tablet PO PRN (23:15)
[2020-12-05] MEDS ORDERED: albuterol 2.5 MG/3 ML nebule NEB PRN (23:45)
--- NOTE | 2020-12-06 00:32 | NUR ---
ADMIT NOTE: This 40 y/o female presented to the ED from [facility] placed on a 5150 hold for gravely disabled. She presented to [facility] today stating that she cannot care for herself, as she's supposed to be taking Keppra for history of seizures. She is homeless and has no primary care provider. She has no homicidal/suicidal ideations. She drinks alcohol, smokes cigarettes, and snorts and smokes methamphetamine. Last use of methamphetamine was earlier today. The patient arrived on the unit at 2345, accompanied by KYMBERLY Adams and KYMBERLY Little. She was weighed, vitals obtained, and checked for contraband. She could not stay awake, so 2 person skin check deferred until morning.
[2020-12-06 07:35] LABS: ALANINE AMINOTRANSFERASE 29 U/L (12-78); ALBUMIN 3.4 G/DL (3.4-5.0); ALBUMIN/GLOBULIN RATIO 1.1 (1.1-1.5); ALKALINE PHOSPHATASE 72 IU/L (46-116); ANION GAP 9 (8-16); ASPARTATE AMINO TRANSFERASE 22 U/L (10-37); BILIRUBIN,TOTAL 0.6 MG/DL (0.1-1.0); BLOOD UREA NITROGEN 7 MG/DL (7-18); BUN/CREATININE RATIO 14.6 (6.6-38.0); CALCIUM 7.7 MG/DL (8.5-10.1); CHLORIDE 107 MMOL/L (99-107); CHOL/HDL RATIO 2.3 (0.00-4.99); CHOLESTEROL 119 MG/DL (0-200); CREATININE 0.48 MG/DL (0.40-0.90); GLUCOSE 94 MG/DL (70-104); HDL CHOLESTEROL 52 MG/DL (35-60); LDL CHOLESTEROL 46 MG/DL (50-100); POTASSIUM 3.5 MMOL/L (3.5-5.1); SODIUM 140 MMOL/L (135-145); TOTAL CARBON DIOXIDE 24.5 MMOL/L (24-32); TOTAL PROTEIN 6.4 G/DL (6.4-8.2); TRIGLYCERIDES 42 MG/DL (20-135); eGFR > 90 ML/MIN
[2020-12-06 07:50] LABS: HEMOGLOBIN A1C 5.3 % (4.5-6.2)
[2020-12-06 08:29] VITALS: BP 119/67
[2020-12-06] MEDS: duloxetine 30mg CAPSULE.DR PO SCH (08:40)
[2020-12-06] MEDS: olanzapine 10mg tablet PO SCH (08:40)
[2020-12-06] MEDS: levetiracetam 250mg tablet PO SCH ×2 (08:40→20:14)
[2020-12-06] MEDS: acetaminophen 325mg tablet PO PRN (17:37)
--- NOTE | 2020-12-06 18:16 | NUR ---
Nursing Progress Note: TESS Legal hold: 5150 Expires 12/08 @ 2674 Client on involuntary status for GD/DTS. Report received from nurse with use of SBAR: MANDI Garza Why are they here: Patient presented to the ED from [facility] placed on a 5150 hold for gravely disabled/DTS. She presented to [facility] today stating that she cannot care for herself, as she's supposed to be taking Keppra for history of seizures. She is homeless and has no primary care provider. She has no homicidal/suicidal ideations. She drinks alcohol, smokes cigarettes, and snorts and smokes methamphetamine. Last use of methamphetamine was earlier today. Assessment What has happened this shift: Received patient sleeping at shift change, respirations even and unlabored. Pt is extremely fatigued, but is calm and cooperative. Pt is able to ambulate to community for meals where she eagerly eats. Pt returns to her room to sleep. Pt was compliant with care and medications. Pt was malodorous, disheveled and dirty. Pts feet were dark in color because of dirt. RN assisted pt with shower in the afternoon, pt required moderate assist as she is very fatigued. Pt repeatedly saying thank you for her shower. Pt started her menstrual cycle and sanitary aides were supplied. Pt did not engage in conversation until after her shower. Pt knows she is at the hospital, but unaware of how she got here. Pt states I am waiting to go to rehab. When asked why she left [facility] pt said she had a seizure was taken to the ER and when she got back I asked for some food and she blew up at me, so I left. Pt states she has seen her [facility] worker (Dolly) every day. Per pt Dolly is trying to get her into a rehab in [facility]. Pt has a difficult time conversing r/t fatigue. Pt passively denies S/I, A/VH. Pt was encouraged to stay up after her shower as she has been in bed for two days. Pt has an intermittent, unproductive cough. Pt c/o of body aches 10/20. Tylenol was administered. S/I, H/I: Passively denies. A/VH: Passively denies. Sleep: Slept the entire shift. Up for meals and shower. ADL's: Independent. Required assistance with shower r/t fatigue. Group attendance: No. Were meds taken: Yes, without issue. Any med S/E: None observed. Mental Status Exam Appearance: Was disheveled and dirty until shower. Dressed in clean unit scrubs. Eye contact: Poor. Behavior: Fatigued, slightly disorganized, cooperative. Speech: Soft, mumbles, trails off r/t fatigue. Mood: Fatigued Affect: Congruent with mood. Thought process: Thought Content: Food, pt is very hungry. Cognition: Alert Insight: Poor Judgment: Poor Interventions PRN's used: Tylenol Therapeutic interventions: Maintained therapeutic milieu, 1:1 assessment completed, provided clear and simple instructions, provided assistance with ADLS, medication administration/monitoring, Q15 min safety checks. Restraints/seclusion/emergency medication: N/A Justification of Continued Inpatient Treatment: Patient requires interruption of current crisis in safe and therapeutic milieu. Patient would benefit from a substance abuse program when stable.
[2020-12-06 20:31] VITALS: BP 112/56
--- NOTE | 2020-12-07 03:37 | NUR ---
Nursing Progress Note: Legal hold: 5150 Client on involuntary status for GD/DTS. Report received from nurse with use of SBAR: MANDI Little Why are they here: Patient presented to the ED from [facility] placed on a 5150 hold for gravely disabled/DTS. She presented to [facility] today stating that she cannot care for herself, as she's supposed to be taking Keppra for history of seizures. She is homeless and has no primary care provider. She has no homicidal/suicidal ideations. She drinks alcohol, smokes cigarettes, and snorts and smokes methamphetamine. Last use of methamphetamine was earlier today. Assessment What has happened this shift: Pt sleeping and eating this shift. She states she is just very tired. She denies mental health assessment questions but states I need rehab. She is polite and cooperative during interactions but observably fatigued and moves to return to sleep; she keeps her eyes closed for most of interaction. She ate snack in her room. S/I, H/I: Denies A/VH: Denies Sleep: See Sleep Assessment ADL's: Independent. Provided additional pads r/t menses. Group attendance: N/A Were meds taken: Yes Any med S/E: None observed nor reported Mental Status Exam Appearance: Clean, wearing scrubs Eye contact: Poor Behavior: Fatigued, cooperative, isolated to room Speech: Soft, mumbles, trails off r/t fatigue. Mood: Fatigued Affect: Flat Thought process: Able to answer questions in a linear fashion and make needs known Thought Content: Food and sleep Cognition: Alert Insight: Poor Judgment: Poor Interventions PRN's used: None Therapeutic interventions: Maintained therapeutic milieu, 1:1 assessment completed, provided clear and simple instructions, provided assistance with ADLS, medication administration/monitoring, Q15 min safety checks. Restraints/seclusion/emergency medication: N/A Justification of Continued Inpatient Treatment: Patient requires interruption of current crisis in safe and therapeutic milieu. Patient would benefit from a substance abuse program when stable.
[2020-12-07 07:29] VITALS: BP 122/79
[2020-12-07] MEDS: duloxetine 30mg CAPSULE.DR PO SCH (08:57)
[2020-12-07] MEDS: olanzapine 10mg tablet PO SCH (08:57)
[2020-12-07] MEDS: levetiracetam 250mg tablet PO SCH ×2 (08:57→20:21)
--- NOTE | 2020-12-07 16:10 | NUR ---
Nursing Progress Note: Legal hold: 5150 Client on involuntary status for GD/DTS. Report received from nurse with use of SBAR: MANDI Garza Why are they here: Patient presented to the ED from [facility] placed on a 5150 hold for gravely disabled/DTS. She presented to [facility] today stating that she cannot care for herself, as she's supposed to be taking Keppra for history of seizures. She is homeless and has no primary care provider. She has no homicidal/suicidal ideations. She drinks alcohol, smokes cigarettes, and snorts and smokes methamphetamine. Last use of methamphetamine was earlier today. Assessment What has happened this shift: Pt has been isolative to self and room. She does come out briefly for meals. Pt was cooperative with medications, no unsafe behaviors noted. Pt denies SI/HI/AH/VH. S/I, H/I: Pt denies A/VH: Pt denies Sleep: Pt slept 10.25 hours last night per noc shift report, pt slept for most of the day. ADL's: Independent. Group attendance: No Were meds taken: Yes Any med S/E: None noted or reported. Mental Status Exam Appearance: Disheveled, messy hair. Eye contact: Poor to fair. Behavior: Isolative to self and room, withdrawn, sleeps for most of the day. Speech: Clear, soft, audible. Mood: Fatigued Affect: Blunted Thought process: Linear Thought Content: Focused on food and sleep. Cognition: A/O X 4 Insight: Fair Judgment: Poor Interventions PRN's used: None Therapeutic interventions: 1:1 assessment, therapeutic communication, active listening, ensured contract for safety, medication administration/education/monitoring, encouragement to come out of room and participate in unit activities Q 15 minute safety checks. Restraints/seclusion/emergency medication: N/A Justification of Continued Inpatient Treatment: Patient requires interruption of current crisis in safe and therapeutic milieu. Patient would benefit from a substance abuse program when stable.
[2020-12-07 20:00] VITALS: BP 127/71
--- NOTE | 2020-12-08 03:02 | NUR ---
Nursing Progress Note: Legal hold: 5150 Client on involuntary status for GD/DTS. Report received from nurse with use of SBAR: MANDI Keating Why are they here: Patient presented to the ED from [facility] placed on a 5150 hold for gravely disabled/DTS. She presented to [facility] today stating that she cannot care for herself, as she's supposed to be taking Keppra for history of seizures. She is homeless and has no primary care provider. She has no homicidal/suicidal ideations. She drinks alcohol, smokes cigarettes, and snorts and smokes methamphetamine. Last use of methamphetamine was earlier today. Assessment What has happened this shift: Pt denies SI/HI/AH/VH but states she feels overwhelmed and numb but would not provide further insight regarding her mood. She is polite and cooperative during interactions but observably fatigued and moves to return to sleep; she keeps her eyes closed for most of interaction. She ate snack in her room. S/I, H/I: Denies A/VH: Denies Sleep: See Sleep Assessment ADL's: Independent. Provided additional pads r/t menses. Group attendance: N/A Were meds taken: Yes Any med S/E: None observed nor reported Mental Status Exam Appearance: Clean, wearing scrubs Eye contact: Poor Behavior: Fatigued, cooperative, isolated to room Speech: Soft, mumbles, trails off r/t fatigue. Mood: Overwhelmed and numb; pt presents as fatigued Affect: Flat Thought process: Able to answer questions in a linear fashion and make needs known Thought Content: Food and sleep Cognition: Alert Insight: Poor Judgment: Poor Interventions PRN's used: None Therapeutic interventions: Maintained therapeutic milieu, 1:1 assessment completed, provided clear and simple instructions, provided assistance with ADLS, medication administration/monitoring, Q15 min safety checks. Restraints/seclusion/emergency medication: N/A Justification of Continued Inpatient Treatment: Patient requires interruption of current crisis in safe and therapeutic milieu. Patient would benefit from a substance abuse program when stable.
[2020-12-08 08:00] VITALS: BP 126/83
[2020-12-08] MEDS: levetiracetam 250mg tablet PO SCH ×2 (08:11→20:33)
[2020-12-08] MEDS: olanzapine 10mg tablet PO SCH (08:11)
[2020-12-08] MEDS: duloxetine 30mg CAPSULE.DR PO SCH (08:11)
[2020-12-08] MEDS: acetaminophen 325mg tablet PO PRN (08:12)
--- NOTE | 2020-12-08 13:01 | NUR ---
Nursing Progress Note: Legal hold: 5150 Client on involuntary status for GD/DTS. Report received from nurse with use of SBAR: MANDI Garza Why are they here: Patient presented to the ED from [facility] placed on a 5150 hold for gravely disabled/DTS. She presented to [facility] today stating that she cannot care for herself, as she's supposed to be taking Keppra for history of seizures. She is homeless and has no primary care provider. She has no homicidal/suicidal ideations. She drinks alcohol, smokes cigarettes, and snorts and smokes methamphetamine. Last use of methamphetamine was earlier today. Assessment What has happened this shift: Pt was up for breakfast. Pt c/o not feeling well. Pt c/o 9/10 pain "all over." Pt reports that she has been coughing though it is nonproductive. This RN did not observe pt coughing. Lung sounds are clear to auscultation all lobes. Pt was given PRN Tylenol 650 mg at 0812 with good effect. Pt has a good appetite, pt ate 100% of breakfast then requested more food. Pt has reported no BM since 12/04/20. Pt refused MOM, pt denied symptoms of constipation. Bowel sounds present X 4. Pt is cooperative with routine medications. Pt only comes out of room for meals, she is isolative to self and sleeps for most of the day. Pt denies SI/HI/AH/VH. S/I, H/I: Pt denies A/VH: Pt denies Sleep: Pt slept 8.5 hours last night per noc shift report, pt slept for most of the day. ADL's: Independent. Group attendance: No Were meds taken: Yes Any med S/E: None noted or reported. Mental Status Exam Appearance: Disheveled woman with messy hair blonde hair. Eye contact: Fair Behavior: Isolative to self and room, withdrawn, sleeps for most of the day. Speech: Clear, soft, audible. Mood: "not good." Affect: Flat Thought process: Linear Thought Content: Focused on food and sleep. Cognition: A/O X 4 Insight: Fair Judgment: Poor Interventions PRN's used: Tylenol Therapeutic interventions: 1:1 assessment, therapeutic communication, active listening, ensured contract for safety, medication administration/education/monitoring, encouragement to come out of room and participate in unit activities Q 15 minute safety checks. Restraints/seclusion/emergency medication: N/A Justification of Continued Inpatient Treatment: Patient requires interruption of current crisis in safe and therapeutic milieu. Patient would benefit from a substance abuse program when stable.
[2020-12-08 20:00] VITALS: BP 125/79
[2020-12-08] MEDS: traZODone 50mg tablet PO PRN (20:38)
--- NOTE | 2020-12-09 03:07 | NUR ---
Nursing Progress Note: Legal hold: 5150 Client on involuntary status for GD/DTS. Report received from BRAN Keating with use of SBAR. Why are they here: Patient presented to the ED from [facility] placed on a 5150 hold for gravely disabled/DTS. She presented to [facility] today stating that she cannot care for herself, as she's supposed to be taking Keppra for history of seizures. She is homeless and has no primary care provider. She has no homicidal/suicidal ideations. She drinks alcohol, smokes cigarettes, and snorts and smokes methamphetamine. Last use of methamphetamine was earlier today. Assessment What has happened this shift: The patient is isolating in her room following shift change. Patient tells this typewriters functional tester that she can't sleep and feels restless. PRN Trazadone given once. Prior to medication pass the patient was only out of her room for food. She was not observed socializing with peers. Patient is cooperative and pleasant to this typewriters functional tester. She looks disheveled. Patient states she had a small bowel movement this shift. She denies H/I, S/I, or any hallucinations. S/I, H/I: Denies. A/VH: Denies. Sleep: Will tally at 0500 hours. ADL's: Independent. Group attendance: No group on nights. Were meds taken: Yes, medication compliant. Any med S/E: None noted or reported. Mental Status Exam Appearance: Disheveled with ruffled hair. Eye contact: Fair. Behavior: Isolative, quiet, not socializing. Speech: Soft voice, regular rhythm. Mood: Depressed. Affect: Congruent to mood. Thought process: Linear. Thought Content: Focused on food and sleep. Cognition: A/O X 4 Insight: Fair. Judgment: Poor. Interventions PRN's used: Trazadone. Therapeutic interventions: 1:1 assessment, therapeutic communication, active listening, ensured contract for safety, medication administration/education/monitoring, encouragement to come out of room and participate in unit activities Q 15 minute safety checks. Restraints/seclusion/emergency medication: N/A Justification of Continued Inpatient Treatment: Patient requires interruption of current crisis in safe and therapeutic milieu. Patient would benefit from a substance abuse program when stable.
[2020-12-09 07:50] VITALS: BP 118/79
[2020-12-09] MEDS: olanzapine 10mg tablet PO SCH (08:00)
[2020-12-09] MEDS: duloxetine 30mg CAPSULE.DR PO SCH (08:45)
[2020-12-09] MEDS: levetiracetam 250mg tablet PO SCH ×2 (08:45→20:36)
--- NOTE | 2020-12-09 15:42 | NUR ---
Initial: Pt admitted on 5149, noted that pt is homeless and does not always know where to find food. On this admission, pt has eaten mostly 100% of meals, may refuse one every now and then. No N/V/D noted, LBM 12/08. Intake adequate, current diet tolerated. No nutritional diagnosis at this time. Will continue to monitor. Rec: 1. Continue Regular diet as tolerated 2. Bowel care per rx 3. Weekly wts Addendum: 12/09/20 at [address] Amended: Links added.
--- NOTE | 2020-12-09 16:56 | NUR ---
Nursing Progress Note: Legal hold: 5150 Client on involuntary status for GD/DTS. Report received from nurse with use of SBAR: BRAN Little Why are they here: Patient presented to the ED from [facility] placed on a 5150 hold for gravely disabled/DTS. She presented to [facility] today stating that she cannot care for herself, as she's supposed to be taking Keppra for history of seizures. She is homeless and has no primary care provider. She has no homicidal/suicidal ideations. She drinks alcohol, smokes cigarettes, and snorts and smokes methamphetamine. Last use of methamphetamine was earlier today. Assessment What has happened this shift: Pt has been isolative to self and room. She does come out briefly for meals. Pt was cooperative with medications, no unsafe behaviors noted. Pt denies SI/HI/AH/VH. Pt affect is flat but she will smile appropriately when joked with. S/I, H/I: Pt denies A/VH: Pt denies Sleep: Pt slept 10.25 hours last night per noc shift report, pt slept for most of the day. ADL's: Independent. Group attendance: No Were meds taken: Yes Any med S/E: None noted or reported. Mental Status Exam Appearance: Disheveled, messy hair. Eye contact: Poor to fair. Behavior: Isolative to self and room, withdrawn, sleeps for most of the day. Speech: Clear, soft, audible. Mood: Fatigued Affect: Blunted Thought process: Linear Thought Content: Focused on food and sleep. Cognition: A/O X 4 Insight: Fair Judgment: Poor Interventions PRN's used: None Therapeutic interventions: 1:1 assessment, therapeutic communication, active listening, ensured contract for safety, medication administration/education/monitoring, encouragement to come out of room and participate in unit activities Q 15 minute safety checks. Restraints/seclusion/emergency medication: N/A Justification of Continued Inpatient Treatment: Patient requires interruption of current crisis in safe and therapeutic milieu. Patient would benefit from a substance abuse program when stable.
[2020-12-09 19:25] VITALS: BP 99/64
--- NOTE | 2020-12-10 03:08 | NUR ---
Nursing Progress Note: Legal hold: 5150 Client on involuntary status for GD/DTS. Report received from BRAN Keating with use of SBAR. Why are they here: Patient presented to the ED from [facility] placed on a 5150 hold for gravely disabled/DTS. She presented to [facility] today stating that she cannot care for herself, as she's supposed to be taking Keppra for history of seizures. She is homeless and has no primary care provider. She has no homicidal/suicidal ideations. She drinks alcohol, smokes cigarettes, and snorts and smokes methamphetamine. Last use of methamphetamine was earlier today. Assessment What has happened this shift: This patient was observed out of her room following shift change. She watches television and socializes with her roommate. The patient is observed laughing at times. 1:1 Interview: Patient denies S/I, H/I, or any hallucinations. Her mood is upbeat. Save for late night inability to sleep combined with mild anxiety this patient presented well. PRN Ativan 1 mg was given early am. The patient returned to bed. S/I, H/I: Denies. A/VH: Denies. Sleep: Will tally at 0500 hours. ADL's: Independent. Group attendance: No group on nights. Were meds taken: Yes, medication compliant. Any med S/E: None noted or reported. Mental Status Exam Appearance: Disheveled with ruffled hair. Eye contact: Fair. Behavior: Laughing and being social. Speech: Soft voice, regular rhythm. Mood: Mild anxiety. Affect: Congruent to mood. Thought process: Linear. Thought Content: Focused on socializing. Cognition: A/O X 4 Insight: Fair. Judgment: Fair. Interventions PRN's used: Ativan, Nicotine lozenge. Therapeutic interventions: 1:1 assessment, therapeutic communication, active listening, ensured contract for safety, medication administration/education/monitoring, encouragement to come out of room and participate in unit activities Q 15 minute safety checks. Restraints/seclusion/emergency medication: N/A Justification of Continued Inpatient Treatment: Patient requires interruption of current crisis in safe and therapeutic milieu. Patient would benefit from a substance abuse program when stable. Addendum: 12/10/20 at 0319 by Chase Kwon RN Please ignore the above nursing note. Wrong patient.
--- NOTE | 2020-12-10 03:33 | NUR ---
Nursing Progress Note: This is the correct nurses note. Please ignore previous note by this marine underwriter on December 10. Legal hold: 5150 Client on involuntary status for GD/DTS. Report received from BRAN Keating with use of SBAR. Why are they here: Patient presented to the ED from [facility] placed on a 5150 hold for gravely disabled/DTS. History of recent meth usage. Assessment What has happened this shift: This patient was isolating in her room following shift change. She was sleeping most of the early evening. 1:1 Interview at bedside. Patient tells quyen marine underwriter, "I'm just feeling blah." She talks about her concern of being homeless and the inability to care for herself. " I just don't want to think about it." Patient states she is depressed, exhausted, and just wants to sleep. Patient denies S/I, H/I, or any hallucinations. Following med pass the patient returns to sleep. S/I, H/I: Denies. A/VH: Denies. Sleep: Will tally at 0500 hours. ADL's: Independent. Group attendance: No group on nights. Were meds taken: Yes, medication compliant. Any med S/E: None noted or reported. Mental Status Exam Appearance: Disheveled looking. Eye contact: Fair. Behavior: Non social, isolating. Speech: Soft voice, regular rhythm. Mood: Depressed. Affect: Congruent to mood. Thought process: Linear. Thought Content: Concerns about being homeless, just wants sleep. Cognition: A/O X 4. Insight: Fair. Judgment: Poor. Interventions PRN's used: None. Therapeutic interventions: 1:1 assessment, therapeutic communication, active listening, ensured contract for safety, medication administration/education/monitoring, encouragement to come out of room and participate in unit activities Q 15 minute safety checks. Restraints/seclusion/emergency medication: N/A Justification of Continued Inpatient Treatment: Patient requires interruption of current crisis in safe and therapeutic milieu. Patient would benefit from a substance abuse program when stable.
[2020-12-10 08:00] VITALS: BP 110/62
[2020-12-10] MEDS: duloxetine 30mg CAPSULE.DR PO SCH (08:05)
[2020-12-10] MEDS: levetiracetam 250mg tablet PO SCH ×2 (08:05→20:16)
[2020-12-10] MEDS: olanzapine 10mg tablet PO SCH (08:05)
[2020-12-10 11:51] LABS: CLARITY,URINE CLEAR (Clear); COLOR,URINE STRAW (Yellow); GLUCOSE, URINE NEGATIVE (Neg); KETONES,URINE NEGATIVE (Neg); LEUKOCYTE ESTERASE ,URINE NEGATIVE (Neg); NITRITES, URINE NEGATIVE (Neg); OCCULT BLOOD,URINE NEGATIVE (Neg); PROTEIN,URINE NEGATIVE (Neg); UROBILINOGEN,URINE 0.2 E.U/dL (0.2-1.0)
[2020-12-10 12:01] LABS: UA COLLECTION TYPE NON-SPECIFIED
--- NOTE | 2020-12-10 17:28 | NUR ---
Nursing Progress Note: Legal hold: 5150 Client on involuntary status for GD/DTS. Report received from BRAN Keating with use of SBAR. Why are they here: Pt from [facility] placed on a 5150 hold for gravely disabled. She presented to [facility] stating that she cannot care for herself, as she's supposed to be taking Keppra for history of seizures. She is homeless and has no primary care provider. She has no homicidal/suicidal ideations. She drinks alcohol, smokes cigarettes, and snorts and smokes methamphetamine. Pts son was removed from her care d/t substance abuse. Last use of methamphetamine was day of admission. Assessment What has happened this shift: Pt attended breakfast, took medications and went back to bed. She attended lunch and dinner as well and slept in between. She denies MH symptoms but endorses depression. . S/I, H/I: Denies. A/VH: Denies. Sleep: Slept most of the day. ADL's: Independent. Group attendance: No group Were meds taken: Yes Any med S/E: None noted Mental Status Exam Appearance: Disheveled Eye contact: Poor. Behavior: Withdrawn, isolative, guarded Speech: Soft Mood: Depressed. Affect: Blunted Thought process: Circumstantial Thought Content: Meeting needs, Depressed. Cognition: Alert. Insight: Fair. Judgment: Poor. Interventions PRN's used: None. Therapeutic interventions: 1:1 assessment, therapeutic communication, active listening, ensured contract for safety, medication administration/education/monitoring, encouragement to come out of room and participate in unit activities Q 15 minute safety checks. Restraints/seclusion/emergency medication: N/A Justification of Continued Inpatient Treatment: Patient requires interruption of current crisis in safe and therapeutic milieu. Patient would benefit from a substance abuse program when stable.
[2020-12-10 19:00] VITALS: BP 101/57
--- NOTE | 2020-12-11 02:20 | NUR ---
Nursing Progress Note: Legal hold: 5250 Client on involuntary status for GD/DTS. Report received from BRAN Meredith with use of SBAR. Why are they here: Patient presented to the ED from [facility] placed on a 5150 hold for gravely disabled/DTS. She presented to [facility] today stating that she cannot care for herself, as she's supposed to be taking Keppra for history of seizures. She is homeless and has no primary care provider. She has no homicidal/suicidal ideations. She drinks alcohol, smokes cigarettes, and snorts and smokes methamphetamine. Last use of methamphetamine was earlier today. Assessment What has happened this shift: The patient chose to sleep all night. tried to wake her, but she wouldn't respond. This nurse was able to get a response with HS meds. She woke up long enough to say that she's doing OK, and just feels like sleeping. After administration, she went back to sleep. S/I, H/I: Denies. A/VH: Denies. Sleep: See sleep assessment ADL's: Independent. Group attendance: No group on nights. Were meds taken: Yes. Any med S/E: None reported or observed. Mental Status Exam Appearance: Disheveled looking woman in unit scrubs, covered in blankets. Eye contact: Fair. Behavior: Non social, isolating, guarded, withdrawn, fatigued. Speech: Soft voice, regular rhythm. Mood: Depressed. Affect: Congruent to mood. Thought process: Linear. Thought Content: Concerns about being homeless, just wants to sleep. Cognition: A/O X 4. Insight: Fair. Judgment: Poor. Interventions PRN's used: None. Therapeutic interventions: 1:1 assessment, therapeutic communication, active listening, ensured contract for safety, medication administration/education/monitoring, encouragement to come out of room and participate in unit activities Q 15 minute safety checks. Restraints/seclusion/emergency medication: N/A Justification of Continued Inpatient Treatment: Patient requires interruption of current crisis in safe and therapeutic milieu. Patient would benefit from a substance abuse program when stable.
[2020-12-11] MEDS: acetaminophen 325mg tablet PO PRN (04:07)
[2020-12-11 08:00] VITALS: BP 116/66
[2020-12-11] MEDS: olanzapine 10mg tablet PO SCH (08:16)
[2020-12-11] MEDS: levetiracetam 250mg tablet PO SCH ×2 (08:16→20:53)
[2020-12-11] MEDS: duloxetine 30mg CAPSULE.DR PO SCH (08:16)
--- NOTE | 2020-12-11 16:13 | NUR ---
Nursing Progress Note: Legal hold: 5150 Client on involuntary status for GD/DTS. Report received from BRAN Keating with use of SBAR. Why are they here: Pt from [facility] placed on a 5150 hold for gravely disabled. She presented to [facility] stating that she cannot care for herself, as she's supposed to be taking Keppra for history of seizures. She is homeless and has no primary care provider. She has no homicidal/suicidal ideations. She drinks alcohol, smokes cigarettes, and snorts and smokes methamphetamine. Pts son was removed from her care d/t substance abuse. Last use of methamphetamine was day of admission. Assessment What has happened this shift: Patient was asleep at change of shift and up for breakfast. Patient looks better that when RN saw her in the E.D. Patient denies SI/HI and denies A/V hallucinations. Patient's hair is wild but clean. Patient sleeps most of the day but comes to meals. Patient is pleasant and in no distress. Patient needing drug rehab and has a high propensity to lose her life if she goes out on the streets. Patient is calm and in no distress. . S/I, H/I: Denies. A/VH: Denies. Sleep: Slept most of the day. ADL's: Independent. Group attendance: No group Were meds taken: Yes Any med S/E: None noted Mental Status Exam Appearance: Hair messy but clean. Pt wearing green scrubs Eye contact: Fair Behavior: Withdrawn, isolative, guarded Speech: Soft Mood: Depressed. Affect: Flat Thought process: Circumstantial Thought Content: Meeting needs, Depressed. Cognition: Alert. Insight: Fair. Judgment: Poor. Interventions PRN's used: None. Therapeutic interventions: 1:1 assessment, therapeutic communication, active listening, ensured contract for safety, medication administration/education/monitoring, encouragement to come out of room and participate in unit activities Q 15 minute safety checks. Restraints/seclusion/emergency medication: N/A Justification of Continued Inpatient Treatment: Patient requires interruption of current crisis in safe and therapeutic milieu. Patient would benefit from a substance abuse program when stable.
--- NOTE | 2020-12-11 16:50 | NUR ---
Patient requesting medication for anxiety. Patient is an addict and no Benzo's for patient. Patient is allergic to diphenhydramine so no hydroxyzine. Patient has slept most of the day. Per Neel, ask patient to use coping skills, breathing, shower. RN advised patient.
[2020-12-11 19:54] VITALS: BP 101/58
--- NOTE | 2020-12-12 01:21 | NUR ---
Nursing Progress Note: Legal hold: 5250 Client on involuntary status for GD/DTS. Report received from BRAN Keating with use of SBAR. Why are they here: Patient presented to the ED from [facility] placed on a 5150 hold for gravely disabled/DTS. She presented to [facility] today stating that she cannot care for herself, as she's supposed to be taking Keppra for history of seizures. She is homeless and has no primary care provider. She has no homicidal/suicidal ideations. She drinks alcohol, smokes cigarettes, and snorts and smokes methamphetamine. Last use of methamphetamine was earlier today. Assessment What has happened this shift: The patient was not seen out of bed tonight, and was there at shift change. She did not get up for snack time, and reluctantly woke up long enought to take HS medication. S/I, H/I: Denies. A/VH: Denies. Sleep: See sleep assessment ADL's: Independent. Group attendance: No group on nights. Were meds taken: Yes. Any med S/E: None reported or observed. Mental Status Exam Appearance: Disheveled looking woman in unit scrubs, covered in blankets. Eye contact: Fair. Behavior: Non social, isolating, guarded, withdrawn, fatigued. Speech: Soft voice, regular rhythm. Mood: Depressed. Affect: Congruent to mood. Thought process: Linear. Thought Content: Concerns about being homeless, just wants to sleep. Cognition: A/O X 4. Insight: Fair. Judgment: Poor. Interventions PRN's used: None. Therapeutic interventions: 1:1 assessment, therapeutic communication, active listening, ensured contract for safety, medication administration/education/monitoring, encouragement to come out of room and participate in unit activities Q 15 minute safety checks. Restraints/seclusion/emergency medication: N/A Justification of Continued Inpatient Treatment: Patient requires interruption of current crisis in safe and therapeutic milieu. Patient would benefit from a substance abuse program when stable.
[2020-12-12 08:00] VITALS: BP 105/65
[2020-12-12] MEDS: olanzapine 10mg tablet PO SCH (08:19)
[2020-12-12] MEDS: levetiracetam 250mg tablet PO SCH ×2 (08:20→20:11)
[2020-12-12] MEDS: duloxetine 30mg CAPSULE.DR PO SCH (08:20)
--- NOTE | 2020-12-12 13:25 | NUR ---
DISCHARGE PLANNING Assisted Kylee with calling [facility] for drug treatment. Sindhu, Substance Use Navigator, also assisted Kylee with making phone calls for treatment. Sent [facility] requested records for possible admission into their program. LONA Ryan
--- NOTE | 2020-12-12 17:13 | NUR ---
What has happened this shift: Patient was awake and alert at change of shift and up for breakfast. Patient denies SI/HI and denies A/V hallucinations. Patient's hair is wild but clean. Patient spent some time on phone today in search of drug rehab in [place]; Patient states she has been accepted to a program there.Patient gait noted to be unsteady in the afternoon states she feels a little dizzy at times; orthostatic b/p taken and noted. Fall risk band placed . Patient resting this afternoon, and is slow to stand as per instruction when getting up and ask for assistance if dizziness recurs. Patient is pleasant and denies any other c/o. Patient is calm and in no distress. S/I, H/I: Denies. A/VH: Denies. . ADL's: Independent. Group attendance: yes group Were meds taken: Yes Any med S/E: None noted Mental Status Exam Appearance: Hair messy but clean. contact: Fair Behavior: , guarded Speech: Soft Mood: Depressed. Affect: Flat Thought process: Circumstantial Thought Content: Meeting needs, Depressed. Cognition: Alert. Insight: Fair. Judgment: Poor. Interventions PRN's used: None. Therapeutic interventions: 1:1 assessment, therapeutic communication, active listening, ensured contract for safety, medication administration/education/monitoring, encouragement to come out of room and participate in unit activities Q 15 minute safety checks. Restraints/seclusion/emergency medication: N/A Justification of Continued Inpatient Treatment: Patient requires interruption of current crisis in safe and therapeutic milieu. Patient would benefit from a substance abuse program when stable.
[2020-12-12 18:30] VITALS: BP 113/66
[2020-12-12 18:35] VITALS: BP 120/67
[2020-12-12 18:40] VITALS: BP 94/61
[2020-12-12 20:00] VITALS: BP 102/57
[2020-12-12] MEDS: acetaminophen 325mg tablet PO PRN (20:18)
--- NOTE | 2020-12-13 00:40 | NUR ---
Nursing Progress Note: Legal hold: 5250 Client on involuntary status for GD/DTS. Report received from BRAN Little with use of SBAR. Why are they here: Patient presented to the ED from [facility] placed on a 5150 hold for gravely disabled/DTS. She presented to [facility] today stating that she cannot care for herself, as she's supposed to be taking Keppra for history of seizures. She is homeless and has no primary care provider. She has no homicidal/suicidal ideations. She drinks alcohol, smokes cigarettes, and snorts and smokes methamphetamine. Last use of methamphetamine was earlier today. Assessment What has happened this shift: The patient was finishing her dinner meal in the group room. 1:1 at bedside. Patient says she's doing fine, and reports that she's been accepted to a d&a rehab in [place]. She states that she's very happy about it, but also anxious, as it will be quite difficult for her, "hopefully, I can finally get my life back." She tried to sleep after HS med pass, but said she was feeling a little anxiety over her news. She requested Trazodone to help get to sleep, which was effective. S/I, H/I: Denies. A/VH: Denies. Sleep: See sleep assessment ADL's: Independent. Group attendance: No group on nights. Were meds taken: Yes. Any med S/E: None reported or observed. Mental Status Exam Appearance: Disheveled, but clean looking woman in unit scrubs. Eye contact: Fair. Behavior: Isolating, guarded, withdrawn, fatigued. Speech: Soft voice, regular rhythm. Mood: Depressed. Affect: Congruent to mood. Thought process: Linear. Thought Content: Happy to be accepted to rehab.. Cognition: A/O X 4. Insight: Fair. Judgment: Poor. Interventions PRN's used: Trazodone.. Therapeutic interventions: 1:1 assessment, therapeutic communication, active listening, ensured contract for safety, medication administration/education/monitoring, encouragement to come out of room and participate in unit activities Q 15 minute safety checks. Restraints/seclusion/emergency medication: N/A Justification of Continued Inpatient Treatment: Patient requires interruption of current crisis in safe and therapeutic milieu. Patient would benefit from a substance abuse program when stable.
[2020-12-13] MEDS: acetaminophen 325mg tablet PO PRN (05:17)
[2020-12-13] MEDS: olanzapine 10mg tablet PO SCH (07:48)
[2020-12-13] MEDS: duloxetine 30mg CAPSULE.DR PO SCH (07:48)
[2020-12-13] MEDS: levetiracetam 250mg tablet PO SCH ×2 (07:49→20:07)
[2020-12-13 08:00] VITALS: BP 111/75
[2020-12-13] MEDS ORDERED: LEVE10006 PO (14:58)
[2020-12-13] MEDS ORDERED: DULO60CA65 PO (14:58)
[2020-12-13] MEDS ORDERED: ALBU18HF2 INH (14:58)
[2020-12-13] MEDS ORDERED: TRAZ-251 PO (14:58)
[2020-12-13] MEDS ORDERED: OLAN10TA73 PO (14:58)
--- NOTE | 2020-12-13 15:12 | NUR ---
Nursing Progress Note: Legal hold: 5150 Client on involuntary status for GD/DTS. Report received from BRAN Keating with use of SBAR. Why are they here: Pt from [facility] placed on a 5150 hold for gravely disabled. She presented to [facility] stating that she cannot care for herself, as she's supposed to be taking Keppra for history of seizures. She is homeless and has no primary care provider. She has no homicidal/suicidal ideations. She drinks alcohol, smokes cigarettes, and snorts and smokes methamphetamine. Pts son was removed from her care d/t substance abuse. Last use of methamphetamine was day of admission. Assessment What has happened this shift: Patient was asleep at change of shift and up for breakfast. Patient is excited about being accepted to a drug rehab program. RN read the notes from and it looks like her acceptance is pending. Patient denies suicidal/homicidal ideation. Patient got a few sets of clothes given to her and she felt good about herself. Patient denies suicidal/homicidal ideation. Patient is hoping to get her son back once she goes to rehab. No distress observed. . S/I, H/I: Denies. A/VH: Denies. Sleep: Patient took a couple of naps today but was up more than usual. ADL's: Independent. Group attendance: No Were meds taken: Yes Any med S/E: None noted Mental Status Exam Appearance: Hair messy but clean. Pt wearing green scrubs Eye contact: Fair Behavior: Withdrawn, isolative, guarded Speech: Soft Mood: Anxious Affect: Flat Thought process: Circumstantial Thought Content: Having needs met Cognition: Alert. Insight: Fair. Judgment: Poor. Interventions PRN's used: None. Therapeutic interventions: 1:1 assessment, therapeutic communication, active listening, ensured contract for safety, medication administration/education/monitoring, encouragement to come out of room and participate in unit activities Q 15 minute safety checks. Restraints/seclusion/emergency medication: N/A Justification of Continued Inpatient Treatment: Patient requires interruption of current crisis in safe and therapeutic milieu. Patient would benefit from a substance abuse program when stable.
[2020-12-13] MEDS ORDERED: hydrOXYzine 25 MG tablet PO ONE (16:15)
[2020-12-13 20:00] VITALS: BP 97/59
--- NOTE | 2020-12-14 00:31 | NUR ---
Nursing Progress Note: Legal hold: VOL for GD/DTS. Report received from BRAN Little with use of SBAR. Why are they here: Patient presented to the ED from [facility] placed on a 5150 hold for gravely disabled/DTS. She presented to [facility] today stating that she cannot care for herself, as she's supposed to be taking Keppra for history of seizures. She is homeless and has no primary care provider. She has no homicidal/suicidal ideations. She drinks alcohol, smokes cigarettes, and snorts and smokes methamphetamine. Last use of methamphetamine was earlier today. Assessment What has happened this shift: Patient slept most of shift, and endorses being tired. She states she is better and happy she was accepted to a rehab program. She denies SI/HI/AH/VH. She remains medications compliant and makes her needs known. She was able to fall asleep this evening without the use of a PRN. S/I, H/I: Denies A/VH: Denies Sleep: See sleep assessment ADL's: Independent Group attendance: N/A Were meds taken: Yes Any med S/E: None reported nor observed Mental Status Exam Appearance: Disheveled Eye contact: Fair Behavior: Isolating, guarded, withdrawn, fatigued. Speech: Soft voice, regular rhythm. Mood: Better, Pt presents as withdrawn/fatigued Affect: Blunted Thought process: Linear Thought Content: looking forward to discharge since she is accepted to a rehab program Cognition: A/O X 4. Insight: Fair Judgment: Poor Interventions PRN's used: None Therapeutic interventions: 1:1 assessment, therapeutic communication, active listening, ensured contract for safety, medication administration/education/monitoring, encouragement to come out of room and participate in unit activities Q 15 minute safety checks. Restraints/seclusion/emergency medication: N/A Justification of Continued Inpatient Treatment: Patient requires interruption of current crisis in safe and therapeutic milieu. Patient would benefit from a substance abuse program when stable. Addendum: 12/14/20 at 0349 by Leslie Benavidez RN ISIDRA Gonzales acquired care of this patient at 0349.
--- NOTE | 2020-12-14 06:46 | NUR ---
DISCHARGE PLAN Kylee has been accepted to [facility]. Transportation has been arranged for citrus picker on at 10 AM. Meds were sent to [facility] and should get delivered today. LONA Ryan
[2020-12-14 08:00] VITALS: BP 110/62
[2020-12-14] MEDS: olanzapine 10mg tablet PO SCH (08:48)
[2020-12-14] MEDS: levetiracetam 250mg tablet PO SCH ×2 (08:48→20:12)
[2020-12-14] MEDS: duloxetine 30mg CAPSULE.DR PO SCH (08:48)
[2020-12-14] MEDS: acetaminophen 325mg tablet PO PRN (08:49)
--- NOTE | 2020-12-14 09:14 | NUR ---
Pt. attended group today. We discussed [facility] Hierarchy of Needs and talked about where they felt they were on their journey. We then did an Art Expressions where they had to draw a symbol that they feel represents themselves. They shared this with the group. Pt. came to group and was very interactive with her peers. She dhiraj herself and her child reporting that her child is her reason why she is making the choice to go to rehab. She shared that she has never been to rehab before but she now feels ready to go. She was encouraging to others as they shared their process as well. She shared this poem she had written, It's okay, It's alright. We are made of love and light. She shared this with the group, many in the group really like the poem and felt very encouraged by it which encouraged her. Pt. was alert and oriented X 4. Her thought content and thought process was WNL. She was calm and pleasant to work with. She shared that she is looking forward to and feeling nervous about going to the rehab in [place] but feels this is the right time. Sophie Laura, [employer]ATH[employer]
--- NOTE | 2020-12-14 17:39 | NUR ---
Nursing Progress Note: Kylee Trimble Legal hold: Voluntary for GD/DTS Report received from BRAN Farias with use of SBAR. Why are they here: Patient presented to the ED from [facility] placed on a 5150 hold for gravely disabled/DTS. She presented to [facility] today stating that she cannot care for herself, as she's supposed to be taking Keppra for history of seizures. She is homeless and has no primary care provider. She has no homicidal/suicidal ideations. She drinks alcohol, smokes cigarettes, and snorts and smokes methamphetamine. Last use of methamphetamine was earlier today. Assessment What has happened this shift: Patient noted to be in bed upon change of shift. She was up for breakfast in the community room with peers. 1:1 assessment completed, lungs CTA. She endorsed to this senior copywriter that she is very excited to go to a rehab center tomorrow. She is hopeful of getting better and being able to reunite with her 13 y/o son. 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 Pt noted participating in group on this shift. She was observed speaking with the social work instructor and participating amongst her peers. She was friendly and appropriate when communicating with this senior copywriter. No c/o SI/HI, AV or HV. Compliant with medications. Pt isolative to her room between meals, noted napping on and off throughout the day. S/I, H/I: Denies A/VH: Denies, does not appear internally preoccupied Sleep: She slept 10 hours last night per NOC shift, occasional napping throughout the day ADL's: Independent Group attendance: Yes Were meds taken: Yes Any med S/E: None reported nor observed Mental Status Exam Appearance: Disheveled, Dressed appropriately for unit in green scrubs Eye contact: Good Behavior: Composed, talkative, isolative to room Speech: Clear, soft spoken Mood: Excited, happy, appropriate Affect: Smiling, congruent with mood Thought process: Linear Thought Content: Excited to discharge to rehab program Cognition: A/O X 4, able to make needs known Insight: Fair Judgment: Poor Interventions PRN's used: Tylenol Therapeutic interventions: Maintained a safe and therapeutic environment, 1:1 assessment, therapeutic communication, behavior monitoring, active listening, ensured contract for safety, medication administration/education/monitoring, Q 15 minute safety checks. Restraints/seclusion/emergency medication: N/A Justification of Continued Inpatient Treatment: Pt. requires a safe and structured environment while discharge is being planned. Kylee has been accepted to [facility]. Transportation has been arranged for fern picker on at 10 AM. Meds were sent to [facility] and should get delivered today.
[2020-12-14 20:00] VITALS: BP 115/75
--- NOTE | 2020-12-15 01:10 | NUR ---
Nursing Progress Note: Legal hold: VOL for GD/DTS. Report received from BRAN Gonzales with use of SBAR. Why are they here: Patient presented to the ED from [facility] placed on a 5150 hold for gravely disabled/DTS. She presented to [facility] today stating that she cannot care for herself, as she's supposed to be taking Keppra for history of seizures. She is homeless and has no primary care provider. She has no homicidal/suicidal ideations. She drinks alcohol, smokes cigarettes, and snorts and smokes methamphetamine. Last use of methamphetamine was earlier today. Assessment What has happened this shift: Pt walking the unit and listening to head phones. She denies SI/HI/AH/VH. She is excited and optimistic about entering the rehab program of her choice. [place] and [place] have less chances of seeing someone I know in rehab. She is hopeful to recover and regain custody of her son. She states she would like to move to [facility]. S/I, H/I: Denies A/VH: Denies Sleep: See sleep assessment ADL's: Independent, Pt showered this evening and clothes were washed Group attendance: N/A Were meds taken: Yes Any med S/E: None reported nor observed Mental Status Exam Appearance: Clean, wearing unit scrubs Eye contact: Good Behavior: fatigued, listening to headphones, showered Speech: Soft voice, regular rhythm. Mood: Im excited Affect: Blunted with frequent, appropriate brightening Thought process: Linear Thought Content: Optimistic about leaving tomorrow Cognition: A/Ox4 Insight: Fair Judgment: Fair Interventions PRN's used: None Therapeutic interventions: 1:1 assessment, therapeutic communication, active listening, ensured contract for safety, medication administration/education/monitoring, encouragement to come out of room and participate in unit activities Q 15 minute safety checks. Restraints/seclusion/emergency medication: N/A Justification of Continued Inpatient Treatment:Pt discharges to a rehabilitation program tomorrow morning.
[2020-12-15] MEDS: acetaminophen 325mg tablet PO PRN ×2 (04:06→16:18)
[2020-12-15] MEDS: levetiracetam 250mg tablet PO SCH ×2 (07:38→20:27)
[2020-12-15] MEDS: duloxetine 30mg CAPSULE.DR PO SCH (07:38)
[2020-12-15] MEDS: olanzapine 10mg tablet PO SCH (07:38)
[2020-12-15 08:00] VITALS: BP 111/68
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
--- NOTE | 2020-12-15 12:46 | NUR ---
F/u 12/15: Pt continues to eat well, avg intake 100% of meals No N/V/D noted, LBM 12/14. Intake adequate, current diet tolerated. No nutritional diagnosis at this time. Will continue to monitor. Rec: 1. Continue Regular diet as tolerated 2. Bowel care per rx 3. Weekly wts Addendum: 12/15/20 at [address] Amended: Links added.
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
[2020-12-15 20:00] VITALS: BP 102/58
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
[2020-12-16] MEDS: duloxetine 30mg CAPSULE.DR PO SCH (07:35)
[2020-12-16] MEDS: levetiracetam 250mg tablet PO SCH ×2 (07:35→20:44)
[2020-12-16] MEDS: olanzapine 10mg tablet PO SCH (07:35)
[2020-12-16 08:00] VITALS: BP 109/66
[2020-12-16] MEDS: acetaminophen 325mg tablet PO PRN (08:38)
--- NOTE | 2020-12-16 09:57 | NUR ---
Kylee has been accepted at [facility]. [address] and she is unable to get transported there at this time. She is willing to stay voluntarily until she can go to [facility]. LONA Ryan
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
--- NOTE | 2020-12-16 15:44 | NUR ---
Pt has a new order for Naltrexone 50 mg daily.
[2020-12-16] MEDS: hydrOXYzine 25 MG tablet PO PRN (18:07)
[2020-12-16 20:00] VITALS: BP 99/55
[2020-12-16 22:14] VITALS: BP 117/74
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
[2020-12-17 07:24] VITALS: BP 96/59
[2020-12-17] MEDS: olanzapine 10mg tablet PO SCH (07:52)
[2020-12-17] MEDS: naltrexone 50mg tablet PO SCH (07:53)
[2020-12-17] MEDS: levetiracetam 250mg tablet PO SCH ×2 (07:53→20:15)
[2020-12-17] MEDS: duloxetine 30mg CAPSULE.DR PO SCH (07:53)
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
[2020-12-17] MEDS: acetaminophen 325mg tablet PO PRN (16:10)
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
[2020-12-17] MEDS: hydrOXYzine 25 MG tablet PO PRN (18:56)
[2020-12-17 19:03] VITALS: BP 98/65
[2020-12-17] MEDS: traZODone 50mg tablet PO PRN (20:14)
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
[2020-12-18] MEDS: acetaminophen 325mg tablet PO PRN ×2 (07:05→16:57)
[2020-12-18 07:40] VITALS: BP 96/63
[2020-12-18] MEDS: olanzapine 10mg tablet PO SCH (08:19)
[2020-12-18] MEDS: levetiracetam 250mg tablet PO SCH ×2 (08:19→21:00)
[2020-12-18] MEDS: naltrexone 50mg tablet PO SCH (08:20)
[2020-12-18] MEDS: duloxetine 30mg CAPSULE.DR PO SCH (08:20)
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
[2020-12-18] MEDS: hydrOXYzine 25 MG tablet PO PRN (15:08)
--- NOTE | 2020-12-18 15:08 | NUR ---
Patient complains of feeling anxious, she requested and was given Atarax.
[2020-12-18 19:52] VITALS: BP 97/56
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
[2020-12-19 07:49] VITALS: BP 97/57
[2020-12-19] MEDS: duloxetine 30mg CAPSULE.DR PO SCH (08:24)
[2020-12-19] MEDS: naltrexone 50mg tablet PO SCH (08:24)
[2020-12-19] MEDS: levetiracetam 250mg tablet PO SCH ×2 (08:24→20:30)
[2020-12-19] MEDS: olanzapine 10mg tablet PO SCH (08:24)
[2020-12-19] MEDS: acetaminophen 325mg tablet PO PRN (08:32)
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
[2020-12-19] MEDS: hydrOXYzine 25 MG tablet PO PRN (13:13)
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
[2020-12-19 20:00] VITALS: BP 96/65
[2020-12-19] MEDS ORDERED: traZODone 50mg tablet PO PRN (22:00)
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
[2020-12-20] MEDS: naltrexone 50mg tablet PO SCH (07:43)
[2020-12-20] MEDS: duloxetine 30mg CAPSULE.DR PO SCH (07:43)
[2020-12-20] MEDS: olanzapine 10mg tablet PO SCH (07:43)
[2020-12-20] MEDS: levetiracetam 250mg tablet PO SCH (07:44)
[2020-12-20 07:58] VITALS: BP 115/67
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
== END 2020-12-20 09:00 | DRG 751 ==
LOC: ADULT MH 21:45
PROVIDERS: ADMIT Psychiatry & Neurology Psychiatry; ATTEND Psychiatry & Neurology Psychiatry
DX: F29 Unspecified psychosis not due to a substance or known physiological condition (principal); R45.851 Suicidal ideations; G40.909 Epilepsy, unspecified, not intractable, without status epilepticus; E03.9 Hypothyroidism, unspecified; F15.10 Other stimulant abuse, uncomplicated; F41.9 Anxiety disorder, unspecified; J45.909 Unspecified asthma, uncomplicated; Z90.49 Acquired absence of other specified parts of digestive tract; Z98.51 Tubal ligation status; Z87.891 Personal history of nicotine dependence; Z59.0 Homelessness
CPT/HCPCS: 36415; 80053; 80061; 81003; 83036; 87081; Q0177